=== PATIENT | male | born 1960 | race African-American/Black ===

== ENCOUNTER 2016-11-28 10:58 | Inpatient (IN) | payer MEDICAID ==
[2016-11-28 11:37] LABS: % BASOPHILS 2.1 % (0.0-2.0); % EOSINOPHILS 3.1 % (0.0-5.0); % LYMPHOCYTES 46.9 % (20.0-50.0); % MONOCYTES 6.9 % (2.0-10.0); HEMATOCRIT 44.2 % (39.0-49.0); HEMOGLOBIN 14.5 gm/dL (13.2-17.3); MEAN CELL VOLUME 91.5 fl (80-99); MEAN CORPUSCULAR HEMOGLOBIN 29.9 pg (26.0-30.0); MEAN CORPUSCULAR HGB CONC 32.7 pg (28.0-36.0); MEAN PLATELET VOLUME 7.4 fl; NEUTROPHILE ABSOLUTE 1.9 Th/cmm (1.8-8.0); PLATELET COUNT 250 Th/cmm (150-400); RED BLOOD COUNT 4.83 Mil/cmm (4.30-5.70); RED CELL DISTRIBUTION WIDTH 13.2 % (11.5-20.0); WHITE BLOOD COUNT 4.6 Th/cmm (4.8-10.8)
[2016-11-28 11:53] LABS: INR 1.06 (0.5-1.4)
[2016-11-28 11:55] LABS: ALB/GLOB RATIO 0.9 (1.0-1.8); ALKALINE PHOSPHATASE 80 U/L (34-104); ANION GAP 9.9 (7.0-16.0); BILIRUBIN,TOTAL 0.5 mg/dL (0.3-1.0); BUN - UREA NITROGEN 23 mg/dL (7-25); BUN/CREATININE RATIO 38.3; CALCIUM SERUM 9.9 mg/dL (8.6-10.3); CARBON DIOXIDE 25.2 mEq/L (21.0-31.0); CHLORIDE 103 mEq/L (98-107); CREATININE - SERUM 0.6 mg/dL (0.7-1.3); GLUCOSE 78 mg/dL (70-105); POTASSIUM SERUM 4.1 mEq/L (3.5-5.1); SGOT 28 U/L (13-39); SGPT/ALT 30 U/L (7-52); SODIUM SERUM 134 mEq/L (136-145)
[2016-11-28 11:56] LABS: CHOLESTEROL 170 mg/dL (<200); TRIGLYCERIDES 49 mg/dL (<150)
[2016-11-28] MEDS ORDERED: Sodium Chloride 0.9% 1,000 ML IV ONE (12:29)
--- NOTE | 2016-11-28 12:39 | ED Physician Chart ---
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 THE PATIENT [facility] S[facility] FROM [facility] BECAUSE HIS LEVEL NOURISHMENT HAS DECREASED GREATLY AND THAT HE NEEDS A G-TUBE PLACEMENT. HE HAS BEEN SHORT OF BREATH WITH SEVERE CHEST CONGESTION. Allergies:: Allergies Allergy/AdvReac Type Severity Reaction Status Date / Time No Known Allergies Allergy Verified 11/28/16 11:12 Vitals:: Vital Signs - 8 hr 11/28/16 11:13 Temp 97.7 F HR 66 RR 17 BP 127/81 O2 Sat % 98 Historian:: EMS, Medical Records Review:: Nurse's Note Reviewed, Old Chart Reviewed, Transfer documents Reviewed Review of Systems - Review of Systems General/Constitutional: No fever, No chills, Weight loss (THIS PATIENT IS UNABLE TO GIVE A REVIEW OF SYSTEMS.), No weakness, No diaphoresis, No edema, No loss of appetite Skin: No skin lesions, No rash, No bruising Head: No headache, No light-headedness Eyes: No loss of vision, No pain, No diplopia ENT: No earache, No nasal drainage, No sore throat, No tinnitus Neck: No neck pain, No swelling, No thyromegaly, No stiffness, No mass noted Cardio Vascular: No chest pain, No palpitations, No PND, No orthopnea, No edema Pulmonary: No SOB, No cough, No sputum, No wheezing GI: No nausea, No vomiting, No diarrhea, No pain, No melena, No hematochezia, No constipation, No hematemesis G/U: No dysuria, No frequency, No hematuria Musculoskeletal: No bone or joint pain, No back pain, No muscle pain Endocrine: No polyuria, No polydipsia Psychiatric: No prior psych history, No depression, No anxiety, No suicidal ideation Hematopoietic: No bruising, No lymphadenopathy Allergic/Immuno: No urticaria, No angioedema Neurological: No syncope, No focal symptoms, No weakness, No paresthesia, No headache, No seizure, No dizziness, No confusion, No vertigo Past Medical History - Past Medical History Obtainable: Yes Past Medical History: Asthma/COPD, DVT/PE, Dementia Family History: None Social History: Non Smoker, No Alcohol, No Drug Use, Single, Care Facility Surgical History: None Psychiatricy History: Dementia Medication: Reviewed Family Medical History - Family Member Father History Unknown: Yes Ethnicity: Non- Living Status: Unknown Physical Exam - Physical Examination General/Constitutional: Well-developed, well-nourished, Alert, No distress, GCS 15, Non-toxic appearing Other Gen/Cons comments:: THE PATIENT CANNOT SPEAK AND IS SPASTIC WITH SOME DIFFICULTY BREATHING AND WITH OCCASIONAL RHONCHI HEARD. Head: Atraumatic Eyes: Lids, conjuctiva normal, PERRL, EOMI Skin: Nl inspection, No rash, No skin lesions, No ecchymosis, Well hydrated, No lymphadenopathy ENMT: External ears, nose nl, Nasal exam nl, Lips, teeth, gums nl Neck: Nontender, Full ROM w/o pain, No JVD, No nuchal rigidity, No bruit, No mass, No stridor Respiratory: Nl effort/Exclusion Other Respiratory comments:: THERE ARE BILATERAL DECREASE BREAST SOUNDS WITH GENERALIZE RHONCHI Cardio Vascular: RRR, No murmur, gallop, rubs, NL S1 S2 GI: No tenderness/rebounding/guarding, No organomegaly, No hernia, Normal BS's, Nondistended, No mass/bruits, No McBurney tenderness : No CVA tenderness Extremities: No tenderness or effusion, Full ROM, normal strength in all extremities, No edema, Normal digits & nails Other Extremities comments:: BOTH FEET ARE DEFORMED AND SPASTIC. Neuro/Psych: Alert/oriented, Normal sensory exam, Mood normal, Normal gait, No focal deficits Other Neuro/Psych comments:: THE PATIENT CANNOT COMMUNICATE AND HAS BOTH A RESTING TREMOR AND A INTENTION TREMOR. Misc: normal gait, Normal back, No paraspinal tenderness Labs/Radiology/EKG Results - Lab Results Results: Laboratory Tests 11/28/16 11/28/16 11/28/16 11:20 11:20 11:20 WBC 4.6 L D RBC 4.83 Hgb 14.5 Hct 44.2 D MCV 91.5 MCH 29.9 MCHC Differential 32.7 RDW 13.2 Plt Count 250 MPV 7.4 Neutrophils % 41.0 Lymphocytes % 46.9 Monocytes % 6.9 Eosinophils % 3.1 Basophils % 2.1 H PT 11.0 INR 1.06 Sodium Potassium Chloride Carbon Dioxide Anion Gap BUN Creatinine Est GFR ( Amer) Est GFR (Non-Af Amer) BUN/Creatinine Ratio Glucose Calcium Total Bilirubin AST ALT Alkaline Phosphatase Troponin I Total Protein Albumin Globulin Albumin/Globulin Ratio Triglycerides 49 Cholesterol 170 LDL Cholesterol Direct 90 HDL Cholesterol 57 Amylase 11/28/16 11/28/16 11/28/16 11:20 11:20 11:20 WBC RBC Hgb Hct MCV MCH MCHC Differential RDW Plt Count MPV Neutrophils % Lymphocytes % Monocytes % Eosinophils % Basophils % PT INR Sodium 134 L Potassium 4.1 Chloride 103 Carbon Dioxide 25.2 Anion Gap 9.9 BUN 23 Creatinine 0.6 L Est GFR ( Amer) > 60.0 Est GFR (Non-Af Amer) > 60.0 BUN/Creatinine Ratio 38.3 Glucose 78 Calcium 9.9 Total Bilirubin 0.5 AST 28 ALT 30 Alkaline Phosphatase 80 Troponin I 0.01 Total Protein 8.4 H Albumin 3.9 L Globulin 4.5 Albumin/Globulin Ratio 0.9 L Triglycerides Cholesterol LDL Cholesterol Direct HDL Cholesterol Amylase 66 - EKG Interpretations EKG Time:: 11:39 Rate & Rhythm: RATE=74 [place]: RIGHT Intervals: NONE Assessment - Assessment General Assessment: PNEUMONIA ED Septic Shock - . Is Septic Shock (SBP<90, OR Lactate>4 mmol\L) present?: No - <6hrs of presentation: Vital Signs: Vital Signs - 8 hr 11/28/16 11:13 Temp 97.7 F HR 66 RR 17 BP 127/81 O2 Sat % 98 Reassessment (Disposition) - Reassessment Reassessment Condition:: Unchanged - Diagnosis Diagnosis:: PNEUMONIA
[2016-11-28] MEDS ORDERED: Albuterol/Ipratropium Neb 3 ML AERS HHN ONE ×2 (12:40→12:43)
--- NOTE | 2016-11-28 13:03 | Diagnostic Imaging Report ---
Portable chest x-ray History: Shortness of breath Allowing for portable technique the heart size is normal. Mild atherosclerotic calcination seen in the aorta. No focal pulmonary parenchymal processes. No hilar or mediastinal abnormalities. Impression: No acute abnormalities.
[2016-11-28 13:19] LABS: URINE BILIRUBIN SMALL (NEGATIVE); URINE COLOR YELLOW; URINE GLUCOSE (UA) NEGATIVE (NEGATIVE); URINE KETONE 40 mg/dL (NEGATIVE)
[2016-11-28 13:20] LABS: URINE BLOOD SMALL (NEGATIVE)
[2016-11-28 13:28] LABS: URINE PH 5.5
[2016-11-28 13:30] LABS: URINE PROTEIN 30 mg/dL (NEGATIVE); URINE UROBILINOGEN 0.2 E.U./dL (0.2 - 1.0)
[2016-11-28 13:34] LABS: URINE BACTERIA FEW /hpf (NONE SEEN); URINE EPITHELIAL CELLS OCCASIONAL /lpf (FEW)
[2016-11-28] MEDS ORDERED: Azithromycin 500 MG in Sodium Chloride 0.9% 250 ML IV ONE (13:37)
[2016-11-28] MEDS: D5-0.45NS 1,000 ML IV SCH (17:17)
--- NOTE | 2016-11-28 22:29 | Admit Criteria Form ---
Admit Criteria Forms - Admit Criteria Diagnosis: PNEUMONIA, COMMUNITY ACQUIRED Clinical Indications for Admission to Inpatient Care (Place ' X' for any and all applicable criteria): Admission to inpatient status for two midnights or more is indicated for ANY ONE of the following (1)(2)(3): [ ]I. Hypoxia [ ]II. Hemodynamic instability [ ]III. Altered mental status that is severe or persistent [ ]IV. Dehydration that is severe or persistent. [ ]V. Bacteremia [ ]. Moderate-risk or high-risk category patients (Pneumonia Severity Index ( PSI) class IV or V, or CURB-65 score of 3 or greater). [ ]VII. Intermediate-risk category patients (e.g., PSI class III or CURB-65 score 2) who do not improve with outpatient and observation care treatment [ ]VIII. Outpatient treatment failure as indicated by 1 or more of the following(9): [ ]a) Failure to respond to antibiotic (eg, resistant organism) [ ]b) Clinically significant adverse effects from medication (eg, vomiting) [ ]c) Complications of pneumonia (eg, empyema, bacteremia) [ ]d) Significant worsening of comorbid cond necessitating inpatient care (eg, chronic heart failure) [ X]IX. Appropriate diagnostic testing and treatment unavailable in outpatient or recovery facility (eg, testing or infection control measures unavailable) [ ]X. Respiratory finding (eg. tachypnea) that do not respond to outpatient observation care treatment [ ]XI. Complicated pleural effusions (eg, emphysema, exudative, loculated) [ ]XII. Immunocompromised patients (e.g., AIDS, chronic steroid use) at moderate or high risk based on clinical evaluation. Extended stay beyond goal length of stay may be needed for (20) [ ]a) Unclear diagnosis [ ]b) Pleural disease [ ]c) Severe pneumonia or treatment failure [ ]d) Respiratory failure [ ]e) New onset hyponatremia (serum Na concentration less than 135 mEq/L(mmol/ L) [ ]f) Clinically significant comorbid illness (eg, heart failure, atrial fibrillation with rapid heart rate, alcohol withdrawal, renal insufficiency)(34)(35) [ ]g) Comorbid acute exacerbation of COPD(36) [ ]h) Concomitant diagnosis of malignancy [ ]i) Concomitant altered mental status [ ]j) Culture-identified Gram-negative or antibiotic-resistant organism (eg, Pseudomonas, methicillin-resistant Staphylococcus aureus MRSA)(30) [ ]k) Healthcare-associated pneumonia (36) The original [facility] [employer] content created by [facility] has been revised. The portions of the content which have been revised are identified through the use of italic text or in bold, and [facility] has neither reviewed nor approved the modified material. All other unmodified content is copyright [facility]. Please see references footnoted in the original [facility] edition 2017 Admit Criteria Met?: Yes
--- NOTE | 2016-11-28 22:30 | Consultation ---
Consult Note - Consult Note Service Date: 11/28/16 Referring Physician: Mallory Traore Consult Note: PHYSICIAN Consultation Note: Date of Admission: 11/28/16 Purpose of Consultation: Chief Complaint:Patient TOMMY LANGFORD was admitted to location Medical[facility] Unit I with PNA, DEHYDRATION, FAILURE TO THRIVE. History of Present Illness: 56 y male with spastic paralysis brought from SNF for loss of appetite with chest congestion. Patient is unable to give any history. On initial evaluation, he was afebrile and his WBC Count was with in normal limits. Patient was thought to have pneumonia and started on rocephin and zithromax. ID consult was called for antibiotic management. 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 COPD, Asthma, Dementia Allergies Allergy/AdvReac Type Severity Reaction Status Date / Time No Known Allergies Allergy Verified 11/28/16 11:12 Vital Signs Temp 97.8 F 11/28/16 16:21 Pulse 72 11/28/16 16:21 Resp 18 11/28/16 16:21 BP 131/78 11/28/16 16:21 Pulse Ox 96 11/28/16 16:21 Intake & Output 11/28/16 11/28/16 11/29/16 06:59 18:59 06:59 Intake Total 1200 Output Total 700 Balance 500 Weight (lbs) 71.214 kg Intake: Intake, IV Amount 1200 Azithromycin 500 mg In 1200 Sodium Chloride 0.9% 250 ml @ 250 mls/hr IV X1 ONE Rx#:[id number] Oral 0 Output: Urine 700 Home Medication Medication Instructions Recorded Type Docusate Sodium [Dss] 100 mg PO BID 02/09/14 History Multimineral/Multivitamin 1 tab PO DAILY 02/09/14 History [Multivitamin & Multimineral] Rivaroxaban [Xarelto] 20 mg PO 1700 11/28/16 History Current Medications Generic Name Dose Route Start Last Admin Trade Name Freq PRN Reason Stop Dose Admin Docusate Sodium 100 mg 11/28/16 17:00 11/28/16 17:17 Colace PO 01/27/17 16:59 100 mg BID DONALD Administration Azithromycin 500 mg/ Sodium 250 mls @ 250 mls/hr 11/29/16 12:00 Chloride IV 01/28/17 11:59 Q24HR DONALD Dextrose/Sodium Chloride 1,000 mls @ 75 mls/hr 11/28/16 15:24 11/28/16 17:17 D5-0.45ns IV 01/27/17 15:23 75 mls/hr .[id number] DONALD Administration Ceftriaxone Sodium 1 gm/ 50 mls @ 100 mls/hr 11/29/16 13:00 Sodium Chloride IV 01/28/17 12:59 Q24HR DONALD Rivaroxaban 20 mg 11/28/16 17:00 11/28/16 17:17 Xarelto PO 01/27/17 16:59 20 mg 1700 DONALD Administration Review of Systems: A 12 point ROS was reviewed with the pertinent positive and negatives noted in the HPI. patient is unable to give any history. Social History Smoking Status Unknown if ever smoked Family Medical History Unknown. Yes Physical Exam: Vitals: as mentioned above. General: No Acute Distress HEENT: Eyes: No pallor, no icterus, EOMI Bilaterally, PERRLA Bilaterally. Head: normocephalic, atraumatic on inspection.Oral cavity moist, pink tongue. Cardio: +S1/S2 Auscultated, RRR, no murmurs/rubs/gallops noted Respiratory: Clear to Auscultate Bilaterally Abdominal: Soft, Nondistended, Nontender to palpation x 4 quadrants Genital/Urinary: deferred Extremities: No Edema noted in the lower extremities. Contractures of all 4 extremities. Neurological: Alert , unable to communicate, eyes open. Confused. Labs are reviewed. CXR shows no acute abnormalities. Assessment: 1. Failure to thrive. 2. ? aspiration. Congestion is better now. 3. COPD. 4. Dementia. 5. Spastic paralysis. Plan: Change antibiotics to levaquin, which can be changed to po for 10 days total. Thank you, Dr Atkinson for involving me in taking care of this patient. Signed, Franklin Alejo M.D. 11/28/005615
[2016-11-28] MEDS: Levofloxacin 500mg/100mL 500 MG/100 ML BAG IV SCH (23:13)
[2016-11-29 05:42] LABS: % BASOPHILS 0.7 % (0.0-2.0); % EOSINOPHILS 1.9 % (0.0-5.0); % LYMPHOCYTES 42.9 % (20.0-50.0); % MONOCYTES 7.9 % (2.0-10.0); % NEUTROPHILS 46.6 % (40.0-80.0); MEAN CELL VOLUME 91.2 fl (80-99); MEAN CORPUSCULAR HEMOGLOBIN 30.2 pg (26.0-30.0); MEAN CORPUSCULAR HGB CONC 33.1 pg (28.0-36.0); MEAN PLATELET VOLUME 7.6 fl; NEUTROPHILE ABSOLUTE 2.4 Th/cmm (1.8-8.0); PLATELET COUNT 234 Th/cmm (150-400); RED BLOOD COUNT 4.16 Mil/cmm (4.30-5.70); WHITE BLOOD COUNT 5.1 Th/cmm (4.8-10.8)
[2016-11-29 05:50] LABS: HEMOGLOBIN 12.5 gm/dL (13.2-17.3)
[2016-11-29 05:51] LABS: HEMATOCRIT 37.9 % (39.0-49.0)
[2016-11-29 06:04] LABS: ALB/GLOB RATIO 0.9 (1.0-1.8); ALKALINE PHOSPHATASE 65 U/L (34-104); ANION GAP 5.3 (7.0-16.0); BILIRUBIN,TOTAL 0.6 mg/dL (0.3-1.0); BUN - UREA NITROGEN 19 mg/dL (7-25); BUN/CREATININE RATIO 27.1; CARBON DIOXIDE 26.4 mEq/L (21.0-31.0); CHLORIDE 107 mEq/L (98-107); CREATININE - SERUM 0.7 mg/dL (0.7-1.3); GLUCOSE 114 mg/dL (70-105); POTASSIUM SERUM 3.7 mEq/L (3.5-5.1); SGOT 25 U/L (13-39); SGPT/ALT 25 U/L (7-52); SODIUM SERUM 135 mEq/L (136-145)
[2016-11-29] MEDS: Multivitamin w/ Minerals Tab PO SCH (08:42)
[2016-11-29] MEDS ORDERED: Azithromycin 500 MG in Sodium Chloride 0.9% 250 ML IV SCH (12:00)
[2016-11-29] MEDS ORDERED: cefTRIAXone 1 GM in 0.9% NS 50 ML IV SCH (13:00)
[2016-11-29] MEDS: Levofloxacin 500mg/100mL 500 MG/100 ML BAG IV SCH (23:22)
[2016-11-30] MEDS: D5-0.45NS 1,000 ML IV SCH (06:11)
[2016-11-30] MEDS: Multivitamin w/ Minerals Tab PO SCH (08:58)
--- NOTE | 2016-11-30 17:03 | General Progress Note ---
Subjective - Review of Systems Service Date: 11/30/16 Events since last encounter: no change Objective - Results Result Diagrams: 11/29/16 05:15 11/29/16 05:15 Recent Labs: Laboratory Last Values WBC 5.1 Th/cmm (4.8-10.8) 11/29/16 05:15 RBC 4.16 Mil/cmm (4.30-5.70) L 11/29/16 05:15 Hgb 12.5 gm/dL (13.2-17.3) L D 11/29/16 05:15 Hct 37.9 % (39.0-49.0) L D 11/29/16 05:15 MCV 91.2 fl (80-99) 11/29/16 05:15 MCH 30.2 pg (26.0-30.0) H 11/29/16 05:15 MCHC Differential 33.1 pg (28.0-36.0) 11/29/16 05:15 RDW 13.0 % (11.5-20.0) 11/29/16 05:15 Plt Count 234 Th/cmm (150-400) 11/29/16 05:15 MPV 7.6 fl 11/29/16 05:15 Neutrophils % 46.6 % (40.0-80.0) 11/29/16 05:15 Lymphocytes % 42.9 % (20.0-50.0) 11/29/16 05:15 Monocytes % 7.9 % (2.0-10.0) 11/29/16 05:15 Eosinophils % 1.9 % (0.0-5.0) 11/29/16 05:15 Basophils % 0.7 % (0.0-2.0) 11/29/16 05:15 ESR 57 mm/hr (0-20) H 11/29/16 05:15 PT 11.0 SECONDS (9.5-11.5) 11/28/16 11:20 INR 1.06 (0.5-1.4) 11/28/16 11:20 Sodium 135 mEq/L (136-145) L 11/29/16 05:15 Potassium 3.7 mEq/L (3.5-5.1) 11/29/16 05:15 Chloride 107 mEq/L (98-107) 11/29/16 05:15 Carbon Dioxide 26.4 mEq/L (21.0-31.0) 11/29/16 05:15 Anion Gap 5.3 (7.0-16.0) L 11/29/16 05:15 BUN 19 mg/dL (7-25) 11/29/16 05:15 Creatinine 0.7 mg/dL (0.7-1.3) 11/29/16 05:15 Est GFR ( Amer) > 60.0 ml/min (>90) 11/29/16 05:15 Est GFR (Non-Af Amer) > 60.0 ml/min 11/29/16 05:15 BUN/Creatinine Ratio 27.1 11/29/16 05:15 Glucose 114 mg/dL (70-105) H 11/29/16 05:15 Calcium 9.0 mg/dL (8.6-10.3) 11/29/16 05:15 Total Bilirubin 0.6 mg/dL (0.3-1.0) 11/29/16 05:15 AST 25 U/L (13-39) 11/29/16 05:15 ALT 25 U/L (7-52) 11/29/16 05:15 Alkaline Phosphatase 65 U/L (34-104) 11/29/16 05:15 Troponin I 0.01 ng/mL (0.01-0.05) 11/28/16 11:20 Total Protein 7.3 gm/dL (6.0-8.3) 11/29/16 05:15 Albumin 3.4 gm/dL (4.2-5.5) L 11/29/16 05:15 Globulin 3.9 gm/dL 11/29/16 05:15 Albumin/Globulin Ratio 0.9 (1.0-1.8) L 11/29/16 05:15 Triglycerides 49 mg/dL (<150) 11/28/16 11:20 Cholesterol 170 mg/dL (<200) 11/28/16 11:20 LDL Cholesterol Direct 90 mg/dL (75-193) 11/28/16 11:20 HDL Cholesterol 57 mg/dL (23-92) 11/28/16 11:20 Amylase 66 U/L (29-103) 11/28/16 11:20 TSH 0.20 uIU/ml (0.34-5.60) L 11/28/16 11:20 Urine Source CLEAN C 11/28/16 13:10 Urine Color YELLOW 11/28/16 13:10 Urine Clarity SLIGHTLY CLOUDY (CLEAR) 11/28/16 13:10 Urine pH 5.5 11/28/16 13:10 Ur Specific [place] 1.025 (1.005-1.030) 11/28/16 13:10 Urine Protein 30 mg/dL (NEGATIVE) H 11/28/16 13:10 Urine Glucose (UA) NEGATIVE mg/dL (NEGATIVE) 11/28/16 13:10 Urine Ketones 40 mg/dL (NEGATIVE) H 11/28/16 13:10 Urine Blood SMALL (NEGATIVE) H 11/28/16 13:10 Urine Nitrate NEGATIVE (NEGATIVE) 11/28/16 13:10 Urine Bilirubin SMALL (NEGATIVE) H 11/28/16 13:10 Urine Urobilinogen 0.2 E.U./dL (0.2 - 1.0) 11/28/16 13:10 Ur Leukocyte Esterase NEGATIVE (NEGATIVE) 11/28/16 13:10 Urine RBC 10-25 /hpf (0-5) H 11/28/16 13:10 Urine WBC 2-5 /hpf (0-5) H 11/28/16 13:10 Ur Epithelial Cells OCCASIONAL /lpf (FEW) 11/28/16 13:10 Urine Bacteria FEW /hpf (NONE SEEN) 11/28/16 13:10 Urine Mucus FEW /lpf (FEW) 11/28/16 13:10 - Physical Exam Vitals and I&O: Vital Signs Temp 97 F 11/30/16 13:00 Pulse 70 11/30/16 13:00 Resp 20 11/30/16 13:00 BP 105/66 11/30/16 13:00 Pulse Ox 97 11/30/16 13:00 Intake & Output 11/29/16 11/30/16 11/30/16 18:59 06:59 18:59 Intake Total 200 Balance 200 Weight (lbs) 71.214 kg 71.033 kg Intake: Oral 200 Other: # Voids 3 # Bowel Movements 1 Stool Characteristics Soft Soft Active Medications: Current Medications Docusate Sodium (Colace) 100 mg PO BID DONALD Stop: 01/27/17 16:59 Last Admin: 11/30/16 16:25 Dose: 100 mg Dextrose/Sodium Chloride (D5-0.45ns) 1,000 mls @ 75 mls/hr IV .[id number] [facility] Stop: 01/27/17 15:23 Last Admin: 11/30/16 06:11 Dose: 75 mls/hr Levofloxacin (Levaquin Pb) 500 mg in 100 mls @ 100 mls/hr IV Q24HR [facility] Stop: 01/27/17 22:59 Last Admin: 11/29/16 23:22 Dose: 100 mls/hr Rivaroxaban (Xarelto) 20 mg PO 1700 [facility] Stop: 01/27/17 16:59 Last Admin: 11/30/16 16:25 Dose: 20 mg General: No acute distress HEENT: Atraumatic Neck: Supple Assessment/Plan - Problem List Patient Problems: All Active Problems FAILURE TO THRIVE WITH POOR ORAL INTAKE (Acute) Fever (Acute) R50.9 Weakness (Acute) - Plan Plan: cpm Nutritional Asmnt/Malnutr-PDOC - Dietary Evaluation Malnutrition Findings (Please click <Entered> for more info): Nutritional Asmnt/Malnutrition Start: 11/29/16 11: 44 Text: Status: Complete Freq: Document 11/29/16 11:45 ANA (Rec: 11/29/16 12:11 ANA CHAMPION FN) Nutritional Asmnt/Malnutrition Patient General Information Nutritional Screening High Risk Screening Diagnosis PNA, deyhdration, Failure to thrive Pertinent Medical Hx/Surgical Hx Chronic embolism and thrombosis, dementia, parkinsons, huntingtons, psychosis, knee contracture, depression, dry eye syndrom, head injury, paralysis agitans , dyskinesia schizophrenia, goiter Subjective Information Patient was admitted from SNF after having "poor oral intake for several days and failure to thrive; possible swallowing compromise per caregiver". Patient just finished eating lunch at time of RD visit; per IMPLEMENTATION DIRECTOR, patient ate most of his food (all soup and milk) and tolerated well, (especially with the fluids, through a straw). Patient appears contracted and with milk temporal wasting. Unable to answer questions. Current Diet Order/ Nutrition Support Pureed Patient / S.O Not Indicated Pertinent Medications colace, D5-0.45 NS at 75ml/hr Pertinent Labs Albumin 3.4 Nutritional Hx/Data Height 1.8 m Height (Calculated Centimeters) 180.3 Current Weight (lbs) 71.214 kg Weight (Calculated Kilograms) 71.2 Weight (Calculated Grams) 08906.0 [place] Body Weight 172 % [place] Body Weight 91 Recent Weight Change No Weight Status Approriate GI Symptoms GI Symptoms None Difficult in: Chewing Swallowing Food Allergies No Cultural/Ethnic/[employer] Belief None indicated Usual diet at home Pureed Skin Integrity/Comment: Intact, bernardo 10 Estimated Nutritional Goals EEE in Kcals: 72 BEE in Kcals: Using Current wt Calories/Kcals/Kg 25-30 kcal/kg Kcals Calculated 7337-9345 kcal/day Protein: Using Current wt Protein g/k-1.2 gm/kg Protein Calculated 70-85 gm/day Fluid: ml 7425-4337 ml/day (1 ml/kcal) Nutritional Problem 1. Problem Problem inadequate oral intake related to Etiology possible poor appetite/ confusion/possible swallowing difficulty aeb Signs/Symptoms: poor oral intake for several days and failure to thrive per admission notes Malnutrition Alert Food and Nutrition Intake (Severe) <50% est energy req 5days Intervention/Recommendation Comments 1. Continue pureed diet as tolerated by patient; swallow evaluation as needed. 2. Continue full assistance with feedings and encourage oral intake; healthshake between meals to supplement calories/protein. Expected Outcomes/Goals Expected Outcomes/Goals Oral intake to meet 75-100% of estimated nutrient needs, weight remains stable.
--- NOTE | 2016-11-30 21:24 | Infectious Disease Prog Note ---
Infectious Disease Subjective - Review of Systems Service Date: 11/30/16 Events since last encounter: None. Subjective: No change. no fever, no shortness of breath. Infectious Disease Objective - Results Result Diagrams: 11/29/16 05:15 11/29/16 05:15 Recent Labs: Laboratory Last Values WBC 5.1 Th/cmm (4.8-10.8) 11/29/16 05:15 RBC 4.16 Mil/cmm (4.30-5.70) L 11/29/16 05:15 Hgb 12.5 gm/dL (13.2-17.3) L D 11/29/16 05:15 Hct 37.9 % (39.0-49.0) L D 11/29/16 05:15 MCV 91.2 fl (80-99) 11/29/16 05:15 MCH 30.2 pg (26.0-30.0) H 11/29/16 05:15 MCHC Differential 33.1 pg (28.0-36.0) 11/29/16 05:15 RDW 13.0 % (11.5-20.0) 11/29/16 05:15 Plt Count 234 Th/cmm (150-400) 11/29/16 05:15 MPV 7.6 fl 11/29/16 05:15 Neutrophils % 46.6 % (40.0-80.0) 11/29/16 05:15 Lymphocytes % 42.9 % (20.0-50.0) 11/29/16 05:15 Monocytes % 7.9 % (2.0-10.0) 11/29/16 05:15 Eosinophils % 1.9 % (0.0-5.0) 11/29/16 05:15 Basophils % 0.7 % (0.0-2.0) 11/29/16 05:15 ESR 57 mm/hr (0-20) H 11/29/16 05:15 PT 11.0 SECONDS (9.5-11.5) 11/28/16 11:20 INR 1.06 (0.5-1.4) 11/28/16 11:20 Sodium 135 mEq/L (136-145) L 11/29/16 05:15 Potassium 3.7 mEq/L (3.5-5.1) 11/29/16 05:15 Chloride 107 mEq/L (98-107) 11/29/16 05:15 Carbon Dioxide 26.4 mEq/L (21.0-31.0) 11/29/16 05:15 Anion Gap 5.3 (7.0-16.0) L 11/29/16 05:15 BUN 19 mg/dL (7-25) 11/29/16 05:15 Creatinine 0.7 mg/dL (0.7-1.3) 11/29/16 05:15 Est GFR ( Amer) > 60.0 ml/min (>90) 11/29/16 05:15 Est GFR (Non-Af Amer) > 60.0 ml/min 11/29/16 05:15 BUN/Creatinine Ratio 27.1 11/29/16 05:15 Glucose 114 mg/dL (70-105) H 11/29/16 05:15 Calcium 9.0 mg/dL (8.6-10.3) 11/29/16 05:15 Total Bilirubin 0.6 mg/dL (0.3-1.0) 11/29/16 05:15 AST 25 U/L (13-39) 11/29/16 05:15 ALT 25 U/L (7-52) 11/29/16 05:15 Alkaline Phosphatase 65 U/L (34-104) 11/29/16 05:15 Troponin I 0.01 ng/mL (0.01-0.05) 11/28/16 11:20 Total Protein 7.3 gm/dL (6.0-8.3) 11/29/16 05:15 Albumin 3.4 gm/dL (4.2-5.5) L 11/29/16 05:15 Globulin 3.9 gm/dL 11/29/16 05:15 Albumin/Globulin Ratio 0.9 (1.0-1.8) L 11/29/16 05:15 Triglycerides 49 mg/dL (<150) 11/28/16 11:20 Cholesterol 170 mg/dL (<200) 11/28/16 11:20 LDL Cholesterol Direct 90 mg/dL (75-193) 11/28/16 11:20 HDL Cholesterol 57 mg/dL (23-92) 11/28/16 11:20 Amylase 66 U/L (29-103) 11/28/16 11:20 TSH 0.20 uIU/ml (0.34-5.60) L 11/28/16 11:20 Urine Source CLEAN C 11/28/16 13:10 Urine Color YELLOW 11/28/16 13:10 Urine Clarity SLIGHTLY CLOUDY (CLEAR) 11/28/16 13:10 Urine pH 5.5 11/28/16 13:10 Ur Specific [place] 1.025 (1.005-1.030) 11/28/16 13:10 Urine Protein 30 mg/dL (NEGATIVE) H 11/28/16 13:10 Urine Glucose (UA) NEGATIVE mg/dL (NEGATIVE) 11/28/16 13:10 Urine Ketones 40 mg/dL (NEGATIVE) H 11/28/16 13:10 Urine Blood SMALL (NEGATIVE) H 11/28/16 13:10 Urine Nitrate NEGATIVE (NEGATIVE) 11/28/16 13:10 Urine Bilirubin SMALL (NEGATIVE) H 11/28/16 13:10 Urine Urobilinogen 0.2 E.U./dL (0.2 - 1.0) 11/28/16 13:10 Ur Leukocyte Esterase NEGATIVE (NEGATIVE) 11/28/16 13:10 Urine RBC 10-25 /hpf (0-5) H 11/28/16 13:10 Urine WBC 2-5 /hpf (0-5) H 11/28/16 13:10 Ur Epithelial Cells OCCASIONAL /lpf (FEW) 11/28/16 13:10 Urine Bacteria FEW /hpf (NONE SEEN) 11/28/16 13:10 Urine Mucus FEW /lpf (FEW) 11/28/16 13:10 - Physical Exam Vitals and I&O: Vital Signs Temp 98.3 F 11/30/16 17:00 Pulse 66 11/30/16 17:00 Resp 18 11/30/16 17:00 BP 95/58 11/30/16 17:00 Pulse Ox 97 11/30/16 17:00 Intake & Output 11/30/16 11/30/16 12/01/16 06:59 18:59 06:59 Intake Total 100 Balance 100 Weight (lbs) 71.033 kg 71.033 kg Intake: Oral 100 Other: # Voids 2 # Bowel Movements 1 Stool Characteristics Soft Active Medications: Current Medications Docusate Sodium (Colace) 100 mg PO BID [facility] Stop: 01/27/17 16:59 Last Admin: 11/30/16 16:25 Dose: 100 mg Dextrose/Sodium Chloride (D5-0.45ns) 1,000 mls @ 75 mls/hr IV .[id number] [facility] Stop: 01/27/17 15:23 Last Admin: 11/30/16 06:11 Dose: 75 mls/hr Levofloxacin (Levaquin Pb) 500 mg in 100 mls @ 100 mls/hr IV Q24HR [facility] Stop: 01/27/17 22:59 Last Admin: 11/29/16 23:22 Dose: 100 mls/hr Rivaroxaban (Xarelto) 20 mg PO 1700 [facility] Stop: 01/27/17 16:59 Last Admin: 11/30/16 16:25 Dose: 20 mg General: no acute distress, well developed, well nourished HEENT: atraumatic, normocephalic, PERRLA, EOMI, moist mucous membrane Neck: supple, no thyromegaly, no lymphadenopathy, no rigid, no lines Cardiovascular: S1S2, regular Lungs: clear to auscultation bilaterally, clear to percussion Abdomen: soft, no tender, no distended Extremities: no cyanosis, no clubbing, no edema Neurological: awake, alert, other (aphasic, contracted extremities.) Skin: intact Infectious Disease Assmt/Plan - Problem List Patient Problems: All Active Problems FAILURE TO THRIVE WITH POOR ORAL INTAKE (Acute) Fever (Acute) R50.9 Weakness (Acute) - Assessment Assessment: Assessment: 1. Failure to thrive. 2. ? aspiration. Congestion is better now. 3. COPD. 4. Dementia. 5. Spastic paralysis. Plan: Continue levaquin, which can be changed to po for 10 days total. Nutritional Asmnt/Malnutr-PDOC - Dietary Evaluation Malnutrition Findings (Please click <Entered> for more info): Nutritional Asmnt/Malnutrition Start: 11/29/16 11: 44 Text: Status: Complete Freq: Document 11/29/16 11:45 ANA (Rec: 11/29/16 12:11 ANA CHAMPION- FNS1) Nutritional Asmnt/Malnutrition Patient General Information Nutritional Screening High Risk Screening Diagnosis PNA, deyhdration, Failure to thrive Pertinent Medical Hx/Surgical Hx Chronic embolism and thrombosis, dementia, parkinsons, huntingtons, psychosis, knee contracture, depression, dry eye syndrom, head injury, paralysis agitans , dyskinesia schizophrenia, goiter Subjective Information Patient was admitted from SNF after having "poor oral intake for several days and failure to thrive; possible swallowing compromise per caregiver". Patient just finished eating lunch at time of RD visit; per HR REPRESENTATIVE, patient ate most of his food (all soup and milk) and tolerated well, (especially with the fluids, through a straw). Patient appears contracted and with milk temporal wasting. Unable to answer questions. Current Diet Order/ Nutrition Support Pureed Patient / S.O Not Indicated Pertinent Medications colace, D5-0.45 NS at 75ml/hr Pertinent Labs Albumin 3.4 Nutritional Hx/Data Height 1.8 m Height (Calculated Centimeters) 180.3 Current Weight (lbs) 71.214 kg Weight (Calculated Kilograms) 71.2 Weight (Calculated Grams) 96065.0 [place] Body Weight 172 % [place] Body Weight 91 Recent Weight Change No Weight Status Approriate GI Symptoms GI Symptoms None Difficult in: Chewing Swallowing Food Allergies No Cultural/Ethnic/Scientologist Belief None indicated Usual diet at home Pureed Skin Integrity/Comment: bernardo Baig 10 Estimated Nutritional Goals EEE in Kcals: 72 BEE in Kcals: Using Current wt Calories/Kcals/Kg 25-30 kcal/kg Kcals Calculated 2602-7949 kcal/day Protein: Using Current wt Protein g/k-1.2 gm/kg Protein Calculated 70-85 gm/day Fluid: ml 1537-1887 ml/day (1 ml/kcal) Nutritional Problem 1. Problem Problem inadequate oral intake related to Etiology possible poor appetite/ confusion/possible swallowing difficulty aeb Signs/Symptoms: poor oral intake for several days and failure to thrive per admission notes Malnutrition Alert Food and Nutrition Intake (Severe) <50% est energy req 5days Intervention/Recommendation Comments 1. Continue pureed diet as tolerated by patient; swallow evaluation as needed. 2. Continue full assistance with feedings and encourage oral intake; healthshake between meals to supplement calories/protein. Expected Outcomes/Goals Expected Outcomes/Goals Oral intake to meet 75-100% of estimated nutrient needs, weight remains stable.
[2016-11-30] MEDS: Levofloxacin 500mg/100mL 500 MG/100 ML BAG IV SCH (22:47)
[2016-12-01] MEDS: D5-0.45NS 1,000 ML IV SCH (00:08)
[2016-12-01] MEDS: Multivitamin w/ Minerals Tab PO SCH (08:44)
--- NOTE | 2016-12-01 12:52 | General Progress Note ---
Subjective - Review of Systems Events since last encounter: no distress Objective - Results Result Diagrams: 11/29/16 05:15 11/29/16 05:15 Recent Labs: Laboratory Last Values WBC 5.1 Th/cmm (4.8-10.8) 11/29/16 05:15 RBC 4.16 Mil/cmm (4.30-5.70) L 11/29/16 05:15 Hgb 12.5 gm/dL (13.2-17.3) L D 11/29/16 05:15 Hct 37.9 % (39.0-49.0) L D 11/29/16 05:15 MCV 91.2 fl (80-99) 11/29/16 05:15 MCH 30.2 pg (26.0-30.0) H 11/29/16 05:15 MCHC Differential 33.1 pg (28.0-36.0) 11/29/16 05:15 RDW 13.0 % (11.5-20.0) 11/29/16 05:15 Plt Count 234 Th/cmm (150-400) 11/29/16 05:15 MPV 7.6 fl 11/29/16 05:15 Neutrophils % 46.6 % (40.0-80.0) 11/29/16 05:15 Lymphocytes % 42.9 % (20.0-50.0) 11/29/16 05:15 Monocytes % 7.9 % (2.0-10.0) 11/29/16 05:15 Eosinophils % 1.9 % (0.0-5.0) 11/29/16 05:15 Basophils % 0.7 % (0.0-2.0) 11/29/16 05:15 ESR 57 mm/hr (0-20) H 11/29/16 05:15 PT 11.0 SECONDS (9.5-11.5) 11/28/16 11:20 INR 1.06 (0.5-1.4) 11/28/16 11:20 Sodium 135 mEq/L (136-145) L 11/29/16 05:15 Potassium 3.7 mEq/L (3.5-5.1) 11/29/16 05:15 Chloride 107 mEq/L (98-107) 11/29/16 05:15 Carbon Dioxide 26.4 mEq/L (21.0-31.0) 11/29/16 05:15 Anion Gap 5.3 (7.0-16.0) L 11/29/16 05:15 BUN 19 mg/dL (7-25) 11/29/16 05:15 Creatinine 0.7 mg/dL (0.7-1.3) 11/29/16 05:15 Est GFR ( Amer) > 60.0 ml/min (>90) 11/29/16 05:15 Est GFR (Non-Af Amer) > 60.0 ml/min 11/29/16 05:15 BUN/Creatinine Ratio 27.1 11/29/16 05:15 Glucose 114 mg/dL (70-105) H 11/29/16 05:15 Calcium 9.0 mg/dL (8.6-10.3) 11/29/16 05:15 Total Bilirubin 0.6 mg/dL (0.3-1.0) 11/29/16 05:15 AST 25 U/L (13-39) 11/29/16 05:15 ALT 25 U/L (7-52) 11/29/16 05:15 Alkaline Phosphatase 65 U/L (34-104) 11/29/16 05:15 Troponin I 0.01 ng/mL (0.01-0.05) 11/28/16 11:20 Total Protein 7.3 gm/dL (6.0-8.3) 11/29/16 05:15 Albumin 3.4 gm/dL (4.2-5.5) L 11/29/16 05:15 Globulin 3.9 gm/dL 11/29/16 05:15 Albumin/Globulin Ratio 0.9 (1.0-1.8) L 11/29/16 05:15 Triglycerides 49 mg/dL (<150) 11/28/16 11:20 Cholesterol 170 mg/dL (<200) 11/28/16 11:20 LDL Cholesterol Direct 90 mg/dL (75-193) 11/28/16 11:20 HDL Cholesterol 57 mg/dL (23-92) 11/28/16 11:20 Amylase 66 U/L (29-103) 11/28/16 11:20 TSH 0.20 uIU/ml (0.34-5.60) L 11/28/16 11:20 Urine Source CLEAN C 11/28/16 13:10 Urine Color YELLOW 11/28/16 13:10 Urine Clarity SLIGHTLY CLOUDY (CLEAR) 11/28/16 13:10 Urine pH 5.5 11/28/16 13:10 Ur Specific [place] 1.025 (1.005-1.030) 11/28/16 13:10 Urine Protein 30 mg/dL (NEGATIVE) H 11/28/16 13:10 Urine Glucose (UA) NEGATIVE mg/dL (NEGATIVE) 11/28/16 13:10 Urine Ketones 40 mg/dL (NEGATIVE) H 11/28/16 13:10 Urine Blood SMALL (NEGATIVE) H 11/28/16 13:10 Urine Nitrate NEGATIVE (NEGATIVE) 11/28/16 13:10 Urine Bilirubin SMALL (NEGATIVE) H 11/28/16 13:10 Urine Urobilinogen 0.2 E.U./dL (0.2 - 1.0) 11/28/16 13:10 Ur Leukocyte Esterase NEGATIVE (NEGATIVE) 11/28/16 13:10 Urine RBC 10-25 /hpf (0-5) H 11/28/16 13:10 Urine WBC 2-5 /hpf (0-5) H 11/28/16 13:10 Ur Epithelial Cells OCCASIONAL /lpf (FEW) 11/28/16 13:10 Urine Bacteria FEW /hpf (NONE SEEN) 11/28/16 13:10 Urine Mucus FEW /lpf (FEW) 11/28/16 13:10 - Physical Exam Vitals and I&O: Vital Signs Temp 97.9 F 12/01/16 11:57 Pulse 69 12/01/16 11:57 Resp 19 12/01/16 11:57 BP 118/85 12/01/16 11:57 Pulse Ox 98 12/01/16 11:57 Intake & Output 11/30/16 12/01/16 12/01/16 18:59 06:59 18:59 Intake Total 100 1100 Balance 100 1100 Weight (lbs) 71.033 kg Intake: Intake, IV Amount 1100 D5-0.45NS 1,000 ml @ 75 1000 mls/hr IV .[id number] [facility] Rx #:[id number] Levofloxacin 500mg/100mL 100 500 mg In 100 ml @ 100 mls/hr IV Q24HR [facility] Rx#: [id number] Oral 100 Other: # Voids 2 # Bowel Movements 1 Stool Characteristics Soft Active Medications: Current Medications Docusate Sodium (Colace) 100 mg PO BID [facility] Stop: 01/27/17 16:59 Last Admin: 12/01/16 08:44 Dose: 100 mg Dextrose/Sodium Chloride (D5-0.45ns) 1,000 mls @ 75 mls/hr IV .[id number] [facility] Stop: 01/27/17 15:23 Last Admin: 12/01/16 00:08 Dose: 75 mls/hr Levofloxacin (Levaquin Pb) 500 mg in 100 mls @ 100 mls/hr IV Q24HR [facility] Stop: 01/27/17 22:59 Last Infusion: 11/30/16 23:47 Dose: Infused Rivaroxaban (Xarelto) 20 mg PO 1700 [facility] Stop: 01/27/17 16:59 Last Admin: 11/30/16 16:25 Dose: 20 mg General: No acute distress HEENT: Atraumatic Assessment/Plan - Problem List Patient Problems: All Active Problems FAILURE TO THRIVE WITH POOR ORAL INTAKE (Acute) Fever (Acute) R50.9 Weakness (Acute) - Plan Plan: cpm Nutritional Asmnt/Malnutr-PDOC - Dietary Evaluation Malnutrition Findings (Please click <Entered> for more info): Nutritional Asmnt/Malnutrition Start: 11/29/16 11: 44 Text: Status: Complete Freq: Document 11/29/16 11:45 ANA (Rec: 11/29/16 12:11 ANA CHAMPION- FNS1) Nutritional Asmnt/Malnutrition Patient General Information Nutritional Screening High Risk Screening Diagnosis PNA, deyhdration, Failure to thrive Pertinent Medical Hx/Surgical Hx Chronic embolism and thrombosis, dementia, parkinsons, huntingtons, psychosis, knee contracture, depression, dry eye syndrom, head injury, paralysis agitans , dyskinesia schizophrenia, goiter Subjective Information Patient was admitted from SNF after having "poor oral intake for several days and failure to thrive; possible swallowing compromise per caregiver". Patient just finished eating lunch at time of RD visit; per WALKING DRAGLINE OILER, patient ate most of his food (all soup and milk) and tolerated well, (especially with the fluids, through a straw). Patient appears contracted and with milk temporal wasting. Unable to answer questions. Current Diet Order/ Nutrition Support Pureed Patient / S.O Not Indicated Pertinent Medications colace, D5-0.45 NS at 75ml/hr Pertinent Labs Albumin 3.4 Nutritional Hx/Data Height 1.8 m Height (Calculated Centimeters) 180.3 Current Weight (lbs) 71.214 kg Weight (Calculated Kilograms) 71.2 Weight (Calculated Grams) 59003.0 [place] Body Weight 172 % [place] Body Weight 91 Recent Weight Change No Weight Status Approriate GI Symptoms GI Symptoms None Difficult in: Chewing Swallowing Food Allergies No Cultural/Ethnic/Yazidism Belief None indicated Usual diet at home Pureed Skin Integrity/Comment: bernardo Baig 10 Estimated Nutritional Goals EEE in Kcals: 72 BEE in Kcals: Using Current wt Calories/Kcals/Kg 25-30 kcal/kg Kcals Calculated 0271-1196 kcal/day Protein: Using Current wt Protein g/k-1.2 gm/kg Protein Calculated 70-85 gm/day Fluid: ml 2812-0677 ml/day (1 ml/kcal) Nutritional Problem 1. Problem Problem inadequate oral intake related to Etiology possible poor appetite/ confusion/possible swallowing difficulty aeb Signs/Symptoms: poor oral intake for several days and failure to thrive per admission notes Malnutrition Alert Food and Nutrition Intake (Severe) <50% est energy req 5days Intervention/Recommendation Comments 1. Continue pureed diet as tolerated by patient; swallow evaluation as needed. 2. Continue full assistance with feedings and encourage oral intake; healthshake between meals to supplement calories/protein. Expected Outcomes/Goals Expected Outcomes/Goals Oral intake to meet 75-100% of estimated nutrient needs, weight remains stable.
[2016-12-01] MEDS: Levofloxacin 500mg/100mL 500 MG/100 ML BAG IV SCH (17:16)
[2016-12-02 03:09] LABS: AFP TUMOR MARKER 5.3 ng/mL (0.0-8.3); CARCINOEMBRYONIC ANTIGEN 2.7 ng/mL (0.0-4.7)
[2016-12-04 12:43] LABS: PROSTATE SPECIFIC ANTIGEN 1.4; THYROGLOBULIN AB <1.0
== END 2016-12-01 19:20 | disposition home or self-care (01) | DRG 139 ==
LOC: ER 10:58 → MSI 14:00
PROVIDERS: ADMIT Internal Medicine; ATTEND Internal Medicine
DX: J18.9 Pneumonia, unspecified organism (principal); F03.90 Unspecified dementia, unspecified severity, without behavioral disturbance, psychotic disturbance, mood disturbance, and anxiety; G83.9 Paralytic syndrome, unspecified; J44.9 Chronic obstructive pulmonary disease, unspecified; R62.7 Adult failure to thrive; E86.0 Dehydration; Z86.73 Personal history of transient ischemic attack (TIA), and cerebral infarction without residual deficits; Z86.718 Personal history of other venous thrombosis and embolism; Z86.711 Personal history of pulmonary embolism
CPT/HCPCS: 36415-UA; 71010-TC; 80053-TC; 80061-TC; 81001-TC; 82105-90; 82150-TC; 82378-90; 84153-90; 84432-90; 84443-TC; 84484-TC; 85025-TC; 85610-TC; 85652-TC; 86235-90; 86592-TC; 93005; 94640; 96375; J0456; J0696; J1956; J7040; Z7610

== ENCOUNTER 2017-03-01 12:16 | Inpatient (IN) | payer MEDICAID ==
--- NOTE | 2017-03-01 12:48 | ED Physician Chart ---
ED Chief Complaint/HPI - Patient Information Date Seen:: 03/01/17 Time Seen:: 12:29 Chief Complaint:: L hand wound noticed today. History of Present Illness:: Brought in by ambulance from nursing facility because of a wound noticed in the palm of left hand today. Pt appears to be comfortable without distress. Pt has dementia and is essentially nonverbal. H & P are limited because of pt's inability to cooperate. Info is primarily from review of limited transfer documents. Allergies:: Allergies Allergy/AdvReac Type Severity Reaction Status Date / Time No Known Allergies Allergy Verified 03/01/17 12:25 Vitals:: Vital Signs - 8 hr 03/01/17 12:16 Temp 97.6 F HR 79 RR 16 BP 136/76 O2 Sat % 98 Historian:: Medical Records (from transferring facility.) Family MD/PCP:: Dr. Traore LMP:: N/A Review:: Nurse's Note Reviewed, Transfer documents Reviewed ED Review of Systems - Review of Systems General/Constitutional: Other (Pt is unable to cooperate for ROS.) ED Past Medical History - Past Medical History Past Medical History: DVT/PE, Dementia, Other (Parkinson's disease, Tate' s disease) Family History: Other (Pt is unable to cooperate to provide info on FHx.) Social History: Care Facility, Other (Pt is unable to cooperate to provide info on SHx.) Surgical History: other (Pt is unable to cooperate to provide info on Surgical Hx.) Psychiatricy History: Depression, Dementia Medication: Reviewed Family Medical History - Family Member Father History Unknown: Yes Ethnicity: Non- Living Status: Unknown ED Physical Exam - Physical Examination General/Constitutional: Awake, Well-developed, well-nourished, Alert, No distress, Non-toxic appearing Other Gen/Cons comments:: Pt is alert but is essentially nonverbal. Breathes comfortably, responds to voice and tactile stimuli. Head: Atraumatic Eyes: Lids, conjuctiva normal, PERRL, EOMI Skin: Well hydrated, No lymphadenopathy Other Skin comments:: See also Extremities exam. ENMT: External ears, nose nl, Nasal exam nl, Oropharynx nl Neck: Nontender, Full ROM w/o pain, No JVD, No nuchal rigidity, No mass, No stridor Respiratory: Nl effort/Exclusion, Clear to Auscultation, No Wheeze/Rhonchi/Rales Cardio Vascular: RRR, No murmur, gallop, rubs GI: No tenderness/rebounding/guarding, No organomegaly, Normal BS's, Nondistended Other GI comments:: Abdomen is soft. Other Extremities comments:: Contractures noticed in all 4 extremities. R ankle shows chronic changes with deformity. Nontender. No open wound, erythema, or swelling. L hand has marked contracture. There is an approx 1 x 1.5 cm area of skin maceration with light yellow exudate noticed. There is minimal swelling and erythema. No crepitus or red streaking. No detectable motor/sensory/vascular deficit. Good distal capillary refills. Other Neuro/Psych comments:: Alert, responsive to voice and tactile stimuli. Spontaneous movements noticed in all 4 extremities. Pt does not cooperate for full neurological exam. ED Labs/Radiology/EKG Results - Lab Results Results: Laboratory Tests 03/01/17 03/01/17 03/01/17 12:58 12:58 12:58 WBC 4.3 L RBC 4.40 Hgb 13.4 Hct 40.2 L MCV 91.3 MCH 30.5 H MCHC Differential 33.4 RDW 12.5 Plt Count 266 MPV 6.7 Neutrophils % 34.6 L Lymphocytes % 52.1 H Monocytes % 8.9 Eosinophils % 3.9 Basophils % 0.5 PT 11.0 INR 1.06 PTT (Actin FS) 33.2 Sodium 135 L Potassium 4.0 Chloride 104 Carbon Dioxide 28.3 Anion Gap 6.7 L BUN 16 Creatinine 0.6 L Est GFR ( Amer) > 60.0 Est GFR (Non-Af Amer) > 60.0 BUN/Creatinine Ratio 26.7 Glucose 90 Calcium 9.1 Total Bilirubin 0.3 AST 17 ALT 15 Alkaline Phosphatase 63 Total Protein 7.3 Albumin 3.5 L Globulin 3.8 Albumin/Globulin Ratio 0.9 L ED Septic Shock - . Is Septic Shock (SBP<90, OR Lactate>4 mmol\L) present?: No - <6hrs of presentation: Vital Signs: Vital Signs - 8 hr 03/01/17 12:16 Temp 97.6 F HR 79 RR 16 BP 136/76 O2 Sat % 98 ED Reassessment (Disposition) - Reassessment Reassessment:: 1415 Pt remains stable. Lab results just became available. Case was discussed with Dr. Traore with pertinent H & P, and lab findings reviewed. He decided to admit pt to Med/Surg [facility] under his care. - Diagnosis Diagnosis:: L hand wound infection. Stable. 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 Dementia - Patient Disposition Admitted to:: Med/Surg Admitting Medical Physician:: Mallory Traore Time:: 14:20 Condition at Disposition:: Stable
[2017-03-01] MEDS ORDERED: Sulfamethoxazole/TMP 800/160mg Tab PO ONE (13:05)
[2017-03-01] MEDS ORDERED: Triple Antibiotic 0.94 gm Pkt TP STA (13:05)
[2017-03-01 13:06] LABS: % BASOPHILS 0.5 % (0.0-2.0); % EOSINOPHILS 3.9 % (0.0-5.0); % LYMPHOCYTES 52.1 % (20.0-50.0); % MONOCYTES 8.9 % (2.0-10.0); % NEUTROPHILS 34.6 % (40.0-80.0); HEMATOCRIT 40.2 % (41.0-60); HEMOGLOBIN 13.4 gm/dL (12-16); MEAN CELL VOLUME 91.3 fl (80-99); MEAN CORPUSCULAR HEMOGLOBIN 30.5 pg (26.0-30.0); MEAN CORPUSCULAR HGB CONC 33.4 pg (28.0-36.0); MEAN PLATELET VOLUME 6.7 fl; NEUTROPHILE ABSOLUTE 1.5 Th/cmm (1.8-8.0); PLATELET COUNT 266 Th/cmm (150-400); RED CELL DISTRIBUTION WIDTH 12.5 % (11.5-20.0); WHITE BLOOD COUNT 4.3 Th/cmm (4.8-10.8)
[2017-03-01] MEDS ORDERED: Levofloxacin 500mg/100mL 500 MG/100 ML BAG IV ONE ×2 (13:06→13:33)
[2017-03-01] MEDS ORDERED: Triple Antibiotic 0.94 gm Pkt TP ONE (13:07)
[2017-03-01 13:16] LABS: INR 1.06 (0.5-1.4)
[2017-03-01 13:17] LABS: ALB/GLOB RATIO 0.9 (1.0-1.8); ALKALINE PHOSPHATASE 63 U/L (34-104); ANION GAP 6.7 (7.0-16.0); BILIRUBIN,TOTAL 0.3 mg/dL (0.3-1.0); BUN - UREA NITROGEN 16 mg/dL (7-25); BUN/CREATININE RATIO 26.7; CALCIUM SERUM 9.1 mg/dL (8.6-10.3); CARBON DIOXIDE 28.3 mEq/L (21.0-31.0); CHLORIDE 104 mEq/L (98-107); CREATININE - SERUM 0.6 mg/dL (0.7-1.3); GLUCOSE 90 mg/dL (70-105); SGOT 17 U/L (13-39); SGPT/ALT 15 U/L (7-52); SODIUM SERUM 135 mEq/L (136-145)
[2017-03-01] MEDS ORDERED: Sulfamethoxazole/TMP 800/160mg Tab ONE (13:32)
[2017-03-01] MEDS: D5-0.45NS 1,000 ML IV SCH (17:26)
--- NOTE | 2017-03-01 20:45 | History & Physical ---
ADMIT DATE: 03/01/2017 HISTORY OF PRESENT ILLNESS: This patient is known to me from the [facility], apparently had infected palm of the left hand. It looks like he had some pus as well as an abscess formation and the nails were digging in. The patient came to the Emergency Room, was evaluated, and admitted for abscess of palm, rule out mustafa abscess, sepsis, and history of dementia. PAST MEDICAL HISTORY: Included history of dementia, history of DVT in the past, history of Parkinson disease, Madeleine disease. Difficult to obtain any other history. PAST MEDICAL HISTORY: As enumerated above. PHYSICAL EXAMINATION: GENERAL: The patient is awake, alert, well-developed, well-nourished, who is not in acute distress, seems to be noncommunicative. HEENT: Head is atraumatic. Eyes are normal. SKIN: Normal. NECK: Supple and nontender. LUNGS: Clear. CARDIOVASCULAR SYSTEM: S1, S2 heard. EXTREMITIES: Left hand, he has lesion and abscess formation, and nails are digging into the and he has contracture, left hand contracture. He has approximately 1 inch x 1.5 cm skin laceration as well as an exudate, possible abscess, and his distal capillary refills are okay. LABORATORY DATA: The patient's white count was 4.3, actually on lower side, hemoglobin 13.4, hematocrit was 40. Electrolytes were normal. PHYSICAL EXAMINATION: VITAL SIGNS: Stable. Blood pressure 136/76, pulse was 76, and respiration was normal. 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 PLAN: The patient is being admitted and I will go ahead and call Dr. Mccormick and Dr. Franklin Alejo and I will start him on antibiotics and possible debridement. JOB# [id number]
[2017-03-02] MEDS: D5-0.45NS 1,000 ML IV SCH (04:39)
--- NOTE | 2017-03-02 08:43 | Diagnostic Imaging Report ---
Portable chest x-ray History: Shortness of breath, preoperative Allowing for portable technique the heart size is normal. No focal pulmonary parenchymal processes. No hilar or mediastinal abnormalities. Impression: No acute abnormalities.
--- NOTE | 2017-03-02 09:21 | Consultation ---
DATE OF CONSULTATION: 03/02/2017 SURGICAL CONSULTATION REFERRING PHYSICIAN: Dr. Traore. REASON FOR CONSULTATION: Abscess, left arm. Thank you for referring this patient to me. HISTORY OF PRESENT ILLNESS: This is a 56-year-old male who comes in through the Emergency Room because of what was discovered in the long-term to be an abscess in the left palm of the hand. The patient is severely contracted, noncommunicative. He responds to stimuli with a very agitated manner. He comes into the Emergency Room, was admitted because of this condition, and has no family. Two doctors signed the consent for the incision and drainage and this will be done under sedation and local anesthesia. LABORATORY STUDIES: Today, WBC is normal, hemoglobin is 13.4. Chemistry is essentially normal. Chest x-ray shows no acute abnormality. PHYSICAL EXAMINATION: The patient with severely contracted. The fingers are held tight against the palm of the hand and trying to this open provokes severe agitation in the patient. There, however, appears to be an abscess with surrounding cellulitis. RECOMMENDATION: I would recommend an incision and drainage of the abscess. The patient already on antibiotics now. Awaiting cultures. We will continue the same antibiotics. JOB# [id number]
--- NOTE | 2017-03-02 09:40 | Operative Report ---
DATE OF SURGERY: 03/02/2017 PREOPERATIVE DIAGNOSES: 1. Abscess, left hand. 2. Parkinson's disease. 3. [place]'s chorea. 4. Dementia . 5. Severe contractures. SURGEON: Anny Hamilton M.D. ANESTHESIA: MAC. ANESTHESIOLOGIST: Angie Maloney M.D. ESTIMATED BLOOD LOSS: None. INDICATIONS FOR SURGERY: Left palm abscess discovered from the shelter. The patient has no family and 2 doctors signed consent for medical necessity. OPERATION DONE: Incision and drainage of abscess, left palm. DESCRIPTION OF PROCEDURE: The patient was given IV sedation. The left hand was prepped with Betadine and draped. Lidocaine 1% was used to infiltrate around the area of abscess. An incision was made through the abscess and the hemostat was introduced. Cultures were taken. The wound was packed with iodoform gauze. The nails were trimmed. It appears that he has been digging into the palm with his nails. JOB# [id number]
--- NOTE | 2017-03-02 10:03 | Consultation ---
Consult Note - Consult Note Service Date: 03/02/17 Referring Physician: Mallory Traore Consult Note: PHYSICIAN Consultation Note: Date of Admission: 03/01/17 Purpose of Consultation: LT HAND ABSCESS Chief Complaint: Patient TOMMY LANGFORD was admitted to [facility] Unit I with R/O SEPSIS. History of Present Illness: 56-year-old male with a past medical history CVA, spastic paralysis with the flexion contractures, COPD, asthma, dementia [facility] hand swelling and posture on plantar aspect. On initial evaluation, his temperature 97.6 today Fahrenheit and WBC count was 4300. He was diagnosed to have left leg cellulitis and abscess. I&D was performed by Dr. Mccormick this morning. Infectious disease consultation was for antibiotic management. Patient was put on vancomycin and Zosyn yesterday. 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 COPD, Asthma, Dementia. Diagnoses UNSPECIFIED DEMENTIA WITHOUT BEHAVIORAL DISTURBANCE (03/01/17) CITLALI'S DISEASE (03/01/17) PARKINSON'S DISEASE (03/01/17) CUTANEOUS ABSCESS OF LEFT HAND (03/01/17) PERSONAL HISTORY OF OTHER VENOUS THROMBOSIS AND EMBOLISM (03/01/17) Allergies Allergy/AdvReac Type Severity Reaction Status Date / Time No Known Allergies Allergy Verified 03/01/17 12:25 Vital Signs Temp 97.3 F 03/02/17 04:00 Pulse 83 03/02/17 04:00 Resp 18 03/02/17 04:00 BP 135/66 03/02/17 04:00 Pulse Ox 92 03/02/17 04:00 Intake & Output 03/01/17 03/02/17 03/02/17 18:59 06:59 18:59 Intake Total 100 941.25 Balance 100 941.25 Weight (lbs) 70.76 kg 70.76 kg Intake: Intake, IV Amount 100 941.25 D5-0.45NS 1,000 ml @ 75 841.25 mls/hr IV .[id number] [facility] Rx #:[id number] Levofloxacin 500mg/100mL 100 500 mg In 100 ml @ 100 mls/hr IV X1 ONE Rx#: [id number] Piperacillin Sodium/ 100 Tazobact 4.5 gm In Sodium Chloride 0.9% 100 ml @ 100 mls/hr IV Q8HR [facility] Rx #:[id number] Other: # Voids 4 Laboratory Results - last 24 hr 03/01/17 17:02 POC Glucose 74 Home Medication Medication Instructions Recorded Type Multivitamin w/ Minerals 1 tab PO DAILY tab 12/01/16 Rx [Theragran M] Rivaroxaban [Xarelto] 20 mg PO 1700 tab 12/01/16 Rx Sennosides A and B [Senna] 8.6 mg PO BID 03/01/17 History Current Medications Generic Name Dose Route Start Last Admin Trade Name Freq PRN Reason Stop Dose Admin Dextrose/Sodium Chloride 1,000 mls @ 75 mls/hr 03/01/17 16:10 03/02/17 04:39 D5-0.45ns IV 04/30/17 16:09 75 mls/hr .[id number] [facility] Administration Vancomycin HCl 1 gm/ Sodium 250 mls @ 165 mls/hr 03/01/17 16:10 03/01/17 17: 21 Chloride IV 04/30/17 16:09 165 mls/hr Q24H [facility] Administration Piperacillin Sod/Tazobactam 100 mls @ 100 mls/hr 03/01/17 21:00 03/02/17 04: 49 Sod 4.5 gm/ Sodium Chloride IV 04/30/17 20:59 100 mls/hr Q8HR [facility] Administration Rivaroxaban 20 mg 03/01/17 17:00 03/01/17 18:10 Xarelto PO 04/30/17 16:59 20 mg QPM [facility] Administration Senna 8.6 mg 03/01/17 17:00 03/01/17 18:11 Senna PO 04/30/17 16:59 8.6 mg BID [facility] Administration Review of Systems: A 12 point ROS was reviewed with the pertinent positive and negatives noted in the HPI. Social History Smoking Status Unknown if ever smoked Drug Use No Alcohol Use No Family Medical History Unknown. Physical Exam: Vitals: as mentioned above. General: No Acute Distress HEENT: Eyes: No pallor, no icterus, EOMI Bilaterally, PERRLA Bilaterally. Head: normocephalic, atraumatic on inspection.Oral cavity moist, pink tongue. Cardio: +S1/S2 Auscultated, RRR, no murmurs/rubs/gallops noted Respiratory: Clear to Auscultate Bilaterally Abdominal: Soft, Nondistended, Nontender to palpation x 4 quadrants Genital/Urinary: deferred Extremities: No Edema noted in the lower extremities. Contractures of all 4 extremities. Left hand swelling with surgical dressing. Neurological: Alert , unable to communicate, eyes open. Confused. Assessment: 1. Left hand cellulitis and abscess. 2. S/p I and D. 3. CVA. 4. COPD. Plan: Continue vancomycin IV and zosyn IV. Wound care. Thank you, Dr. Traore, for involving me in taking care of this patient Signed, Franklin Alejo M.D. [id number]
[2017-03-02] MEDS: Multivitamin w/ Minerals Tab PO SCH (10:11)
[2017-03-02] MEDS ORDERED: HYDROmorphone 2 mg/mL 1mL Vial IVP PRN (10:40)
[2017-03-02] MEDS ORDERED: VTE Chemical Prophylaxis Screen/Admission MC PRN (12:14)
[2017-03-02] MEDS ORDERED: Probiotic Screen MC PRN (14:40)
[2017-03-02] MEDS: Lactobacillus Rhamnosus 10 Billion CFU Capsule PO SCH (16:26)
--- NOTE | 2017-03-02 19:52 | Internal Medicine Prog Note ---
Internal Medicine Subjective - Subjective Service Date: 03/02/17 Patient seen and examined:: with staff Patient is:: awake, non-verbal, non-interactive Per staff patient has:: no adverse event Internal Medicine Objective - Results Result Diagrams: 03/01/17 12:58 03/01/17 12:58 Recent Labs: Laboratory Last Values WBC 4.3 Th/cmm (4.8-10.8) L 03/01/17 12:58 RBC 4.40 Mil/cmm (4.30-5.70) 03/01/17 12:58 Hgb 13.4 gm/dL (12-16) 03/01/17 12:58 Hct 40.2 % (41.0-60) L 03/01/17 12:58 MCV 91.3 fl (80-99) 03/01/17 12:58 MCH 30.5 pg (26.0-30.0) H 03/01/17 12:58 MCHC Differential 33.4 pg (28.0-36.0) 03/01/17 12:58 RDW 12.5 % (11.5-20.0) 03/01/17 12:58 Plt Count 266 Th/cmm (150-400) 03/01/17 12:58 MPV 6.7 fl 03/01/17 12:58 Neutrophils % 34.6 % (40.0-80.0) L 03/01/17 12:58 Lymphocytes % 52.1 % (20.0-50.0) H 03/01/17 12:58 Monocytes % 8.9 % (2.0-10.0) 03/01/17 12:58 Eosinophils % 3.9 % (0.0-5.0) 03/01/17 12:58 Basophils % 0.5 % (0.0-2.0) 03/01/17 12:58 PT 11.0 SECONDS (9.5-11.5) 03/01/17 12:58 INR 1.06 (0.5-1.4) 03/01/17 12:58 PTT (Actin FS) 33.2 SECONDS (26.0-38.0) 03/01/17 12:58 Sodium 135 mEq/L (136-145) L 03/01/17 12:58 Potassium 4.0 mEq/L (3.5-5.1) 03/01/17 12:58 Chloride 104 mEq/L (98-107) 03/01/17 12:58 Carbon Dioxide 28.3 mEq/L (21.0-31.0) 03/01/17 12:58 Anion Gap 6.7 (7.0-16.0) L 03/01/17 12:58 BUN 16 mg/dL (7-25) 03/01/17 12:58 Creatinine 0.6 mg/dL (0.7-1.3) L 03/01/17 12:58 Est GFR ( Amer) > 60.0 ml/min (>90) 03/01/17 12:58 Est GFR (Non-Af Amer) > 60.0 ml/min 03/01/17 12:58 BUN/Creatinine Ratio 26.7 03/01/17 12:58 Glucose 90 mg/dL (70-105) 03/01/17 12:58 POC Glucose 74 MG/DL (70 - 105) 03/01/17 17:02 Calcium 9.1 mg/dL (8.6-10.3) 03/01/17 12:58 Total Bilirubin 0.3 mg/dL (0.3-1.0) 03/01/17 12:58 AST 17 U/L (13-39) 03/01/17 12:58 ALT 15 U/L (7-52) 03/01/17 12:58 Alkaline Phosphatase 63 U/L (34-104) 03/01/17 12:58 Total Protein 7.3 gm/dL (6.0-8.3) 03/01/17 12:58 Albumin 3.5 gm/dL (4.2-5.5) L 03/01/17 12:58 Globulin 3.8 gm/dL 03/01/17 12:58 Albumin/Globulin Ratio 0.9 (1.0-1.8) L 03/01/17 12:58 - Physical Exam Vitals and I&O: Vital Signs Temp 97.5 F 03/02/17 16:00 Pulse 70 03/02/17 16:00 Resp 16 03/02/17 16:00 BP 114/63 03/02/17 16:00 Pulse Ox 94 03/02/17 16:00 Intake & Output 03/02/17 03/02/17 03/03/17 06:59 18:59 06:59 Intake Total 1041.25 703.75 Balance 1041.25 703.75 Weight (lbs) 156 lb Intake: Intake, IV Amount 1041.25 703.75 D5-0.45NS 1,000 ml @ 75 841.25 703.75 mls/hr IV .[id number] [facility] Rx #:[id number] Piperacillin Sodium/ 200 Tazobact 4.5 gm In Sodium Chloride 0.9% 100 ml @ 100 mls/hr IV Q8HR [facility] Rx #:[id number] Other: # Voids 4 Active Medications: Current Medications Heparin Sodium (Porcine) (Heparin) 5,000 units SUBQ Q12HR [facility] Stop: 05/02/17 20:59 Hydromorphone HCl (Dilaudid) 2 mg IVP Q4H PRN PRN Reason: Pain (Severe) Stop: 05/01/17 10:39 Last Admin: 03/02/17 10:57 Dose: 2 mg Dextrose/Sodium Chloride (D5-0.45ns) 1,000 mls @ 75 mls/hr IV .[id number] [facility] Stop: 04/30/17 16:09 Last Infusion: 03/02/17 14:02 Dose: 75 mls/hr Vancomycin HCl 1 gm/ Sodium (Chloride) 250 mls @ 165 mls/hr IV Q24H [facility] Stop: 04/30/17 16:09 Last Admin: 03/02/17 16:26 Dose: 165 mls/hr Piperacillin Sod/Tazobactam (Sod 4.5 gm/ Sodium Chloride) 100 mls @ 100 mls/hr IV Q8HR [facility] Stop: 04/30/17 20:59 Last Admin: 03/02/17 14:03 Dose: 100 mls/hr Lactobacillus Rhamnosus (Culturelle) 1 each PO DAILY [facility] Stop: 05/01/17 15:59 Last Admin: 03/02/17 16:26 Dose: 1 each Miscellaneous (Vte Chemical Prophylaxis Screen/ Admission) 1 ea PRN PRN PRN Reason: PROTOCOL Stop: 05/01/17 12:13 Miscellaneous (Probiotic Screen) 1 ea PRN PRN PRN Reason: PROTOCOL Stop: 05/01/17 14:39 Rivaroxaban (Xarelto) 20 mg PO QPM [facility] Stop: 04/30/17 16:59 Last Admin: 03/02/17 16:24 Dose: 20 mg Senna (Senna) 8.6 mg PO BID [facility] Stop: 04/30/17 16:59 Last Admin: 03/02/17 16:24 Dose: 8.6 mg General: alert HEENT: NC/AT, PERRLA Neck: Supple Lungs: CTAB Abdomen: soft, non-tender, other (left hand abscess) Neurological: alert - Procedures Procedures: Procedures Procedure Code Date DRAINAGE OF LEFT HAND, OPEN APPROACH [id number] 03/01/17 I&D ABSCESS SUBFASCIAL 03/01/17 Internal Medicine Assmt/Plan - Assessment Assessment: left hand infection s/p i+d left hand abscess hx parkinsons 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
[2017-03-03] MEDS: Lactobacillus Rhamnosus 10 Billion CFU Capsule PO SCH (08:38)
[2017-03-03] MEDS: Multivitamin w/ Minerals Tab PO SCH (08:38)
[2017-03-03] MEDS: D5-0.45NS 1,000 ML IV SCH (08:39)
--- NOTE | 2017-03-03 10:09 | General Progress Note ---
Subjective - Review of Systems Events since last encounter: no acute distress with Left hand abscess s/p i&d on antibiotics , ID f/up Objective - Results Result Diagrams: 03/01/17 12:58 03/01/17 12:58 Recent Labs: Laboratory Last Values WBC 4.3 Th/cmm (4.8-10.8) L 03/01/17 12:58 RBC 4.40 Mil/cmm (4.30-5.70) 03/01/17 12:58 Hgb 13.4 gm/dL (12-16) 03/01/17 12:58 Hct 40.2 % (41.0-60) L 03/01/17 12:58 MCV 91.3 fl (80-99) 03/01/17 12:58 MCH 30.5 pg (26.0-30.0) H 03/01/17 12:58 MCHC Differential 33.4 pg (28.0-36.0) 03/01/17 12:58 RDW 12.5 % (11.5-20.0) 03/01/17 12:58 Plt Count 266 Th/cmm (150-400) 03/01/17 12:58 MPV 6.7 fl 03/01/17 12:58 Neutrophils % 34.6 % (40.0-80.0) L 03/01/17 12:58 Lymphocytes % 52.1 % (20.0-50.0) H 03/01/17 12:58 Monocytes % 8.9 % (2.0-10.0) 03/01/17 12:58 Eosinophils % 3.9 % (0.0-5.0) 03/01/17 12:58 Basophils % 0.5 % (0.0-2.0) 03/01/17 12:58 PT 11.0 SECONDS (9.5-11.5) 03/01/17 12:58 INR 1.06 (0.5-1.4) 03/01/17 12:58 PTT (Actin FS) 33.2 SECONDS (26.0-38.0) 03/01/17 12:58 Sodium 135 mEq/L (136-145) L 03/01/17 12:58 Potassium 4.0 mEq/L (3.5-5.1) 03/01/17 12:58 Chloride 104 mEq/L (98-107) 03/01/17 12:58 Carbon Dioxide 28.3 mEq/L (21.0-31.0) 03/01/17 12:58 Anion Gap 6.7 (7.0-16.0) L 03/01/17 12:58 BUN 16 mg/dL (7-25) 03/01/17 12:58 Creatinine 0.6 mg/dL (0.7-1.3) L 03/01/17 12:58 Est GFR ( Amer) > 60.0 ml/min (>90) 03/01/17 12:58 Est GFR (Non-Af Amer) > 60.0 ml/min 03/01/17 12:58 BUN/Creatinine Ratio 26.7 03/01/17 12:58 Glucose 90 mg/dL (70-105) 03/01/17 12:58 POC Glucose 74 MG/DL (70 - 105) 03/01/17 17:02 Calcium 9.1 mg/dL (8.6-10.3) 03/01/17 12:58 Total Bilirubin 0.3 mg/dL (0.3-1.0) 03/01/17 12:58 AST 17 U/L (13-39) 03/01/17 12:58 ALT 15 U/L (7-52) 03/01/17 12:58 Alkaline Phosphatase 63 U/L (34-104) 03/01/17 12:58 Total Protein 7.3 gm/dL (6.0-8.3) 03/01/17 12:58 Albumin 3.5 gm/dL (4.2-5.5) L 03/01/17 12:58 Globulin 3.8 gm/dL 03/01/17 12:58 Albumin/Globulin Ratio 0.9 (1.0-1.8) L 03/01/17 12:58 - Physical Exam Vitals and I&O: Vital Signs Temp 99.1 F 03/03/17 09:00 Pulse 83 03/03/17 09:00 Resp 18 03/03/17 09:00 BP 119/59 03/03/17 09:00 Pulse Ox 97 03/03/17 09:00 Intake & Output 03/02/17 03/03/17 03/03/17 18:59 06:59 18:59 Intake Total 1100.00 100 Balance 1100.00 100 Weight (lbs) 73.142 kg 73.164 kg Intake: Intake, IV Amount 1100.00 100 D5-0.45NS 1,000 ml @ 75 1000.00 mls/hr IV .[id number] [facility] Rx #:[id number] Piperacillin Sodium/ 100 100 Tazobact 4.5 gm In Sodium Chloride 0.9% 100 ml @ 100 mls/hr IV Q8HR [facility] Rx #:[id number] Other: # Voids 2 # Bowel Movements 0 0 Active Medications: Current Medications Heparin Sodium (Porcine) (Heparin) 5,000 units SUBQ Q12HR [facility] Stop: 05/02/17 20:59 Hydromorphone HCl (Dilaudid) 2 mg IVP Q4H PRN PRN Reason: Pain (Severe) Stop: 05/01/17 10:39 Last Admin: 03/02/17 10:57 Dose: 2 mg Dextrose/Sodium Chloride (D5-0.45ns) 1,000 mls @ 75 mls/hr IV .[id number] [facility] Stop: 04/30/17 16:09 Last Admin: 03/03/17 08:39 Dose: 75 mls/hr Vancomycin HCl 1 gm/ Sodium (Chloride) 250 mls @ 165 mls/hr IV Q24H [facility] Stop: 04/30/17 16:09 Last Admin: 03/02/17 16:26 Dose: 165 mls/hr Piperacillin Sod/Tazobactam (Sod 4.5 gm/ Sodium Chloride) 100 mls @ 100 mls/hr IV Q8HR [facility] Stop: 04/30/17 20:59 Last Admin: 03/03/17 06:28 Dose: 100 mls/hr Lactobacillus Rhamnosus (Culturelle) 1 each PO DAILY [facility] Stop: 05/01/17 15:59 Last Admin: 03/03/17 08:38 Dose: 1 each Miscellaneous (Vte Chemical Prophylaxis Screen/ Admission) 1 ea PRN PRN PRN Reason: PROTOCOL Stop: 05/01/17 12:13 Miscellaneous (Probiotic Screen) 1 ea PRN PRN PRN Reason: PROTOCOL Stop: 05/01/17 14:39 Rivaroxaban (Xarelto) 20 mg PO QPM [facility] Stop: 04/30/17 16:59 Last Admin: 03/02/17 16:24 Dose: 20 mg Senna (Senna) 8.6 mg PO BID [facility] Stop: 04/30/17 16:59 Last Admin: 03/03/17 08:38 Dose: 8.6 mg General: No acute distress Cardiovascular: Regular rate, Normal S1 Lungs: Clear to auscultation Abdomen: Bowel sounds - Procedures Procedures: Procedures Procedure Code Date DRAINAGE OF LEFT HAND, OPEN APPROACH [id number] 03/01/17 I&D ABSCESS SUBFASCIAL 03/01/17 Assessment/Plan - Problem List Patient Problems: All Active Problems FAILURE TO THRIVE WITH POOR ORAL INTAKE (Acute) Fever (Acute) R50.9 Weakness (Acute) - Plan Plan: as per order sheet
--- NOTE | 2017-03-03 10:40 | General Progress Note ---
Subjective - Review of Systems Service Date: 03/03/17 Events since last encounter: abscess of palm is small ok to have oral antibiotics for DC nails were trimmed, this needs to be done on a routine basis Objective - Results Result Diagrams: 03/01/17 12:58 03/01/17 12:58 Recent Labs: Laboratory Last Values WBC 4.3 Th/cmm (4.8-10.8) L 03/01/17 12:58 RBC 4.40 Mil/cmm (4.30-5.70) 03/01/17 12:58 Hgb 13.4 gm/dL (12-16) 03/01/17 12:58 Hct 40.2 % (41.0-60) L 03/01/17 12:58 MCV 91.3 fl (80-99) 03/01/17 12:58 MCH 30.5 pg (26.0-30.0) H 03/01/17 12:58 MCHC Differential 33.4 pg (28.0-36.0) 03/01/17 12:58 RDW 12.5 % (11.5-20.0) 03/01/17 12:58 Plt Count 266 Th/cmm (150-400) 03/01/17 12:58 MPV 6.7 fl 03/01/17 12:58 Neutrophils % 34.6 % (40.0-80.0) L 03/01/17 12:58 Lymphocytes % 52.1 % (20.0-50.0) H 03/01/17 12:58 Monocytes % 8.9 % (2.0-10.0) 03/01/17 12:58 Eosinophils % 3.9 % (0.0-5.0) 03/01/17 12:58 Basophils % 0.5 % (0.0-2.0) 03/01/17 12:58 PT 11.0 SECONDS (9.5-11.5) 03/01/17 12:58 INR 1.06 (0.5-1.4) 03/01/17 12:58 PTT (Actin FS) 33.2 SECONDS (26.0-38.0) 03/01/17 12:58 Sodium 135 mEq/L (136-145) L 03/01/17 12:58 Potassium 4.0 mEq/L (3.5-5.1) 03/01/17 12:58 Chloride 104 mEq/L (98-107) 03/01/17 12:58 Carbon Dioxide 28.3 mEq/L (21.0-31.0) 03/01/17 12:58 Anion Gap 6.7 (7.0-16.0) L 03/01/17 12:58 BUN 16 mg/dL (7-25) 03/01/17 12:58 Creatinine 0.6 mg/dL (0.7-1.3) L 03/01/17 12:58 Est GFR ( Amer) > 60.0 ml/min (>90) 03/01/17 12:58 Est GFR (Non-Af Amer) > 60.0 ml/min 03/01/17 12:58 BUN/Creatinine Ratio 26.7 03/01/17 12:58 Glucose 90 mg/dL (70-105) 03/01/17 12:58 POC Glucose 74 MG/DL (70 - 105) 03/01/17 17:02 Calcium 9.1 mg/dL (8.6-10.3) 03/01/17 12:58 Total Bilirubin 0.3 mg/dL (0.3-1.0) 03/01/17 12:58 AST 17 U/L (13-39) 03/01/17 12:58 ALT 15 U/L (7-52) 03/01/17 12:58 Alkaline Phosphatase 63 U/L (34-104) 03/01/17 12:58 Total Protein 7.3 gm/dL (6.0-8.3) 03/01/17 12:58 Albumin 3.5 gm/dL (4.2-5.5) L 03/01/17 12:58 Globulin 3.8 gm/dL 03/01/17 12:58 Albumin/Globulin Ratio 0.9 (1.0-1.8) L 03/01/17 12:58 - Physical Exam Vitals and I&O: Vital Signs Temp 99.1 F 03/03/17 09:00 Pulse 83 03/03/17 09:00 Resp 18 03/03/17 09:00 BP 119/59 03/03/17 09:00 Pulse Ox 97 03/03/17 09:00 Intake & Output 03/02/17 03/03/17 03/03/17 18:59 06:59 18:59 Intake Total 1100.00 100 Balance 1100.00 100 Weight (lbs) 73.142 kg 73.164 kg Intake: Intake, IV Amount 1100.00 100 D5-0.45NS 1,000 ml @ 75 1000.00 mls/hr IV .[id number] [facility] Rx #:[id number] Piperacillin Sodium/ 100 100 Tazobact 4.5 gm In Sodium Chloride 0.9% 100 ml @ 100 mls/hr IV Q8HR [facility] Rx #:[id number] Other: # Voids 2 # Bowel Movements 0 0 Active Medications: Current Medications Heparin Sodium (Porcine) (Heparin) 5,000 units SUBQ Q12HR [facility] Stop: 05/02/17 20:59 Hydromorphone HCl (Dilaudid) 2 mg IVP Q4H PRN PRN Reason: Pain (Severe) Stop: 05/01/17 10:39 Last Admin: 03/02/17 10:57 Dose: 2 mg Dextrose/Sodium Chloride (D5-0.45ns) 1,000 mls @ 75 mls/hr IV .[id number] [facility] Stop: 04/30/17 16:09 Last Admin: 03/03/17 08:39 Dose: 75 mls/hr Vancomycin HCl 1 gm/ Sodium (Chloride) 250 mls @ 165 mls/hr IV Q24H [facility] Stop: 04/30/17 16:09 Last Admin: 03/02/17 16:26 Dose: 165 mls/hr Piperacillin Sod/Tazobactam (Sod 4.5 gm/ Sodium Chloride) 100 mls @ 100 mls/hr IV Q8HR [facility] Stop: 04/30/17 20:59 Last Admin: 03/03/17 06:28 Dose: 100 mls/hr Lactobacillus Rhamnosus (Culturelle) 1 each PO DAILY [facility] Stop: 05/01/17 15:59 Last Admin: 03/03/17 08:38 Dose: 1 each Miscellaneous (Vte Chemical Prophylaxis Screen/ Admission) 1 ea MC PRN PRN PRN Reason: PROTOCOL Stop: 05/01/17 12:13 Miscellaneous (Probiotic Screen) 1 ea MC PRN PRN PRN Reason: PROTOCOL Stop: 05/01/17 14:39 Rivaroxaban (Xarelto) 20 mg PO QPM [facility] Stop: 04/30/17 16:59 Last Admin: 03/02/17 16:24 Dose: 20 mg Senna (Senna) 8.6 mg PO BID [facility] Stop: 04/30/17 16:59 Last Admin: 03/03/17 08:38 Dose: 8.6 mg General: No acute distress Cardiovascular: Regular rate, Normal S1 Lungs: Clear to auscultation Abdomen: Bowel sounds - Procedures Procedures: Procedures Procedure Code Date DRAINAGE OF LEFT HAND, OPEN APPROACH [id number] 03/01/17 I&D ABSCESS SUBFASCIAL 03/01/17 Assessment/Plan - Problem List Patient Problems: All Active Problems FAILURE TO THRIVE WITH POOR ORAL INTAKE (Acute) Fever (Acute) R50.9 Weakness (Acute)
[2017-03-03] MEDS: Triple Antibiotic 0.94 gm Pkt TP SCH (15:49)
--- NOTE | 2017-03-03 22:49 | Infectious Disease Prog Note ---
Infectious Disease Subjective - Review of Systems Service Date: 03/03/17 Subjective: There is no new change, there is no fever. Infectious Disease Objective - Results Result Diagrams: 03/01/17 12:58 03/01/17 12:58 Recent Labs: Laboratory Last Values WBC 4.3 Th/cmm (4.8-10.8) L 03/01/17 12:58 RBC 4.40 Mil/cmm (4.30-5.70) 03/01/17 12:58 Hgb 13.4 gm/dL (12-16) 03/01/17 12:58 Hct 40.2 % (41.0-60) L 03/01/17 12:58 MCV 91.3 fl (80-99) 03/01/17 12:58 MCH 30.5 pg (26.0-30.0) H 03/01/17 12:58 MCHC Differential 33.4 pg (28.0-36.0) 03/01/17 12:58 RDW 12.5 % (11.5-20.0) 03/01/17 12:58 Plt Count 266 Th/cmm (150-400) 03/01/17 12:58 MPV 6.7 fl 03/01/17 12:58 Neutrophils % 34.6 % (40.0-80.0) L 03/01/17 12:58 Lymphocytes % 52.1 % (20.0-50.0) H 03/01/17 12:58 Monocytes % 8.9 % (2.0-10.0) 03/01/17 12:58 Eosinophils % 3.9 % (0.0-5.0) 03/01/17 12:58 Basophils % 0.5 % (0.0-2.0) 03/01/17 12:58 PT 11.0 SECONDS (9.5-11.5) 03/01/17 12:58 INR 1.06 (0.5-1.4) 03/01/17 12:58 PTT (Actin FS) 33.2 SECONDS (26.0-38.0) 03/01/17 12:58 Sodium 135 mEq/L (136-145) L 03/01/17 12:58 Potassium 4.0 mEq/L (3.5-5.1) 03/01/17 12:58 Chloride 104 mEq/L (98-107) 03/01/17 12:58 Carbon Dioxide 28.3 mEq/L (21.0-31.0) 03/01/17 12:58 Anion Gap 6.7 (7.0-16.0) L 03/01/17 12:58 BUN 16 mg/dL (7-25) 03/01/17 12:58 Creatinine 0.6 mg/dL (0.7-1.3) L 03/01/17 12:58 Est GFR ( Amer) > 60.0 ml/min (>90) 03/01/17 12:58 Est GFR (Non-Af Amer) > 60.0 ml/min 03/01/17 12:58 BUN/Creatinine Ratio 26.7 03/01/17 12:58 Glucose 90 mg/dL (70-105) 03/01/17 12:58 POC Glucose 74 MG/DL (70 - 105) 03/01/17 17:02 Calcium 9.1 mg/dL (8.6-10.3) 03/01/17 12:58 Total Bilirubin 0.3 mg/dL (0.3-1.0) 03/01/17 12:58 AST 17 U/L (13-39) 03/01/17 12:58 ALT 15 U/L (7-52) 03/01/17 12:58 Alkaline Phosphatase 63 U/L (34-104) 03/01/17 12:58 Total Protein 7.3 gm/dL (6.0-8.3) 03/01/17 12:58 Albumin 3.5 gm/dL (4.2-5.5) L 03/01/17 12:58 Globulin 3.8 gm/dL 03/01/17 12:58 Albumin/Globulin Ratio 0.9 (1.0-1.8) L 03/01/17 12:58 - Physical Exam Vitals and I&O: Vital Signs Temp 99.4 F 03/03/17 20:00 Pulse 76 03/03/17 20:00 Resp 18 03/03/17 20:00 BP 116/74 03/03/17 20:00 Pulse Ox 98 03/03/17 20:00 Intake & Output 03/03/17 03/03/17 03/04/17 06:59 18:59 06:59 Intake Total 100 250 Balance 100 250 Weight (lbs) 73.142 kg 73.028 kg Intake: Intake, IV Amount 100 200 Piperacillin Sodium/ 100 200 Tazobact 4.5 gm In Sodium Chloride 0.9% 100 ml @ 100 mls/hr IV Q8HR [facility] Rx #:[id number] Oral 50 Other: # Voids 2 3 # Bowel Movements 0 0 Active Medications: Current Medications Heparin Sodium (Porcine) (Heparin) 5,000 units SUBQ Q12HR [facility] Stop: 05/02/17 20:59 Last Admin: 03/03/17 22:24 Dose: 5,000 units Hydromorphone HCl (Dilaudid) 2 mg IVP Q4H PRN PRN Reason: Pain (Severe) Stop: 05/01/17 10:39 Last Admin: 03/02/17 10:57 Dose: 2 mg Dextrose/Sodium Chloride (D5-0.45ns) 1,000 mls @ 75 mls/hr IV .[id number] [facility] Stop: 04/30/17 16:09 Last Admin: 03/03/17 08:39 Dose: 75 mls/hr Vancomycin HCl 1 gm/ Sodium (Chloride) 250 mls @ 165 mls/hr IV Q24H [facility] Stop: 04/30/17 16:09 Last Admin: 03/03/17 15:50 Dose: 165 mls/hr Piperacillin Sod/Tazobactam (Sod 4.5 gm/ Sodium Chloride) 100 mls @ 100 mls/hr IV Q8HR [facility] Stop: 04/30/17 20:59 Last Admin: 03/03/17 22:18 Dose: 100 mls/hr Lactobacillus Rhamnosus (Culturelle) 1 each PO DAILY [facility] Stop: 05/01/17 15:59 Last Admin: 03/03/17 08:38 Dose: 1 each Miscellaneous (Vte Chemical Prophylaxis Screen/ Admission) 1 ea [facility] PRN PRN PRN Reason: PROTOCOL Stop: 05/01/17 12:13 Miscellaneous (Probiotic Screen) 1 ea [facility] PRN PRN PRN Reason: PROTOCOL Stop: 05/01/17 14:39 Neomycin/Polymyxin/Bacitracin (Triple Antibiotic Pkt) 1 pkt TP DAILY [facility] Stop: 05/02/17 11:29 Last Admin: 03/03/17 15:49 Dose: 1 pkt Rivaroxaban (Xarelto) 20 mg PO QPM [facility] Stop: 04/30/17 16:59 Last Admin: 03/03/17 17:06 Dose: 20 mg Senna (Senna) 8.6 mg PO BID [facility] Stop: 04/30/17 16:59 Last Admin: 03/03/17 17:06 Dose: 8.6 mg General: no acute distress, well developed, well nourished HEENT: atraumatic, normocephalic, PERRLA, EOMI Neck: supple, no thyromegaly Cardiovascular: S1S2, regular Lungs: clear to auscultation bilaterally, clear to percussion Abdomen: soft, no tender, no distended Extremities: other (Left hand dressing.), no cyanosis, no clubbing, no edema Neurological: awake, alert, oriented Skin: intact - Procedures Procedures: Procedures Procedure Code Date DRAINAGE OF LEFT HAND, OPEN APPROACH [id number] 03/01/17 I&D ABSCESS SUBFASCIAL 03/01/17 Infectious Disease Assmt/Plan - Problem List Patient Problems: All Active Problems FAILURE TO THRIVE WITH POOR ORAL INTAKE (Acute) Fever (Acute) R50.9 Weakness (Acute) - Assessment Assessment: 1. Left hand cellulitis and abscess. 2. S/p I and D. 3. CVA. 4. COPD. - Plan Plan: Contiue vanco IV and Zosyn. Woun care.
[2017-03-04] MEDS: D5-0.45NS 1,000 ML IV SCH (05:08)
[2017-03-04] MEDS: Lactobacillus Rhamnosus 10 Billion CFU Capsule PO SCH (08:38)
[2017-03-04] MEDS: Multivitamin w/ Minerals Tab PO SCH (08:38)
[2017-03-04] MEDS: Triple Antibiotic 0.94 gm Pkt TP SCH (08:39)
--- NOTE | 2017-03-04 09:22 | General Progress Note ---
Subjective - Review of Systems Events since last encounter: no new changes Objective - Results Result Diagrams: 03/01/17 12:58 03/01/17 12:58 Recent Labs: Laboratory Last Values WBC 4.3 Th/cmm (4.8-10.8) L 03/01/17 12:58 RBC 4.40 Mil/cmm (4.30-5.70) 03/01/17 12:58 Hgb 13.4 gm/dL (12-16) 03/01/17 12:58 Hct 40.2 % (41.0-60) L 03/01/17 12:58 MCV 91.3 fl (80-99) 03/01/17 12:58 MCH 30.5 pg (26.0-30.0) H 03/01/17 12:58 MCHC Differential 33.4 pg (28.0-36.0) 03/01/17 12:58 RDW 12.5 % (11.5-20.0) 03/01/17 12:58 Plt Count 266 Th/cmm (150-400) 03/01/17 12:58 MPV 6.7 fl 03/01/17 12:58 Neutrophils % 34.6 % (40.0-80.0) L 03/01/17 12:58 Lymphocytes % 52.1 % (20.0-50.0) H 03/01/17 12:58 Monocytes % 8.9 % (2.0-10.0) 03/01/17 12:58 Eosinophils % 3.9 % (0.0-5.0) 03/01/17 12:58 Basophils % 0.5 % (0.0-2.0) 03/01/17 12:58 PT 11.0 SECONDS (9.5-11.5) 03/01/17 12:58 INR 1.06 (0.5-1.4) 03/01/17 12:58 PTT (Actin FS) 33.2 SECONDS (26.0-38.0) 03/01/17 12:58 Sodium 135 mEq/L (136-145) L 03/01/17 12:58 Potassium 4.0 mEq/L (3.5-5.1) 03/01/17 12:58 Chloride 104 mEq/L (98-107) 03/01/17 12:58 Carbon Dioxide 28.3 mEq/L (21.0-31.0) 03/01/17 12:58 Anion Gap 6.7 (7.0-16.0) L 03/01/17 12:58 BUN 16 mg/dL (7-25) 03/01/17 12:58 Creatinine 0.6 mg/dL (0.7-1.3) L 03/01/17 12:58 Est GFR ( Amer) > 60.0 ml/min (>90) 03/01/17 12:58 Est GFR (Non-Af Amer) > 60.0 ml/min 03/01/17 12:58 BUN/Creatinine Ratio 26.7 03/01/17 12:58 Glucose 90 mg/dL (70-105) 03/01/17 12:58 POC Glucose 74 MG/DL (70 - 105) 03/01/17 17:02 Calcium 9.1 mg/dL (8.6-10.3) 03/01/17 12:58 Total Bilirubin 0.3 mg/dL (0.3-1.0) 03/01/17 12:58 AST 17 U/L (13-39) 03/01/17 12:58 ALT 15 U/L (7-52) 03/01/17 12:58 Alkaline Phosphatase 63 U/L (34-104) 03/01/17 12:58 Total Protein 7.3 gm/dL (6.0-8.3) 03/01/17 12:58 Albumin 3.5 gm/dL (4.2-5.5) L 03/01/17 12:58 Globulin 3.8 gm/dL 03/01/17 12:58 Albumin/Globulin Ratio 0.9 (1.0-1.8) L 03/01/17 12:58 - Physical Exam Vitals and I&O: Vital Signs Temp 98.8 F 03/04/17 04:00 Pulse 80 03/04/17 04:00 Resp 18 03/04/17 04:00 BP 126/83 03/04/17 04:00 Pulse Ox 97 03/04/17 04:00 Intake & Output 03/03/17 03/04/17 03/04/17 18:59 06:59 18:59 Intake Total 250 1285 Balance 250 1285 Weight (lbs) 73.028 kg 73.482 kg Intake: Intake, IV Amount 200 1285 D5-0.45NS 1,000 ml @ 75 1085 mls/hr IV .[id number] [facility] Rx #:[id number] Piperacillin Sodium/ 200 200 Tazobact 4.5 gm In Sodium Chloride 0.9% 100 ml @ 100 mls/hr IV Q8HR [facility] Rx #:[id number] Oral 50 Other: # Voids 3 # Bowel Movements 0 Active Medications: Current Medications Heparin Sodium (Porcine) (Heparin) 5,000 units SUBQ Q12HR [facility] Stop: 05/02/17 20:59 Last Admin: 03/04/17 08:39 Dose: 5,000 units Hydromorphone HCl (Dilaudid) 2 mg IVP Q4H PRN PRN Reason: Pain (Severe) Stop: 05/01/17 10:39 Last Admin: 03/02/17 10:57 Dose: 2 mg Dextrose/Sodium Chloride (D5-0.45ns) 1,000 mls @ 75 mls/hr IV .[id number] [facility] Stop: 04/30/17 16:09 Last Infusion: 03/04/17 06:16 Dose: 75 mls/hr Vancomycin HCl 1 gm/ Sodium (Chloride) 250 mls @ 165 mls/hr IV Q24H [facility] Stop: 04/30/17 16:09 Last Admin: 03/03/17 15:50 Dose: 165 mls/hr Piperacillin Sod/Tazobactam (Sod 4.5 gm/ Sodium Chloride) 100 mls @ 100 mls/hr IV Q8HR [facility] Stop: 04/30/17 20:59 Last Infusion: 03/04/17 06:16 Dose: Infused Lactobacillus Rhamnosus (Culturelle) 1 each PO DAILY [facility] Stop: 05/01/17 15:59 Last Admin: 03/04/17 08:38 Dose: 1 each Miscellaneous (Vte Chemical Prophylaxis Screen/ Admission) 1 ea PRN PRN PRN Reason: PROTOCOL Stop: 05/01/17 12:13 Miscellaneous (Probiotic Screen) 1 ea PRN PRN PRN Reason: PROTOCOL Stop: 05/01/17 14:39 Neomycin/Polymyxin/Bacitracin (Triple Antibiotic Pkt) 1 pkt TP DAILY [facility] Stop: 05/02/17 11:29 Last Admin: 03/04/17 08:39 Dose: 1 pkt Rivaroxaban (Xarelto) 20 mg PO QPM [facility] Stop: 04/30/17 16:59 Last Admin: 03/03/17 17:06 Dose: 20 mg Senna (Senna) 8.6 mg PO BID [facility] Stop: 04/30/17 16:59 Last Admin: 03/04/17 08:39 Dose: 8.6 mg General: No acute distress Cardiovascular: Regular rate, Normal S1 Lungs: Clear to auscultation Abdomen: Bowel sounds - Procedures Procedures: Procedures Procedure Code Date DRAINAGE OF LEFT HAND, OPEN APPROACH [id number] 03/01/17 I&D ABSCESS SUBFASCIAL 03/01/17 Assessment/Plan - Problem List Patient Problems: All Active Problems FAILURE TO THRIVE WITH POOR ORAL INTAKE (Acute) Fever (Acute) R50.9 Weakness (Acute) - Plan Plan: as per order sheet
--- NOTE | 2017-03-04 11:06 | Infectious Disease Prog Note ---
Infectious Disease Subjective - Review of Systems Service Date: 03/04/17 Subjective: There is no new change, there is no fever. Infectious Disease Objective - Results Result Diagrams: 03/01/17 12:58 03/01/17 12:58 Recent Labs: Laboratory Last Values WBC 4.3 Th/cmm (4.8-10.8) L 03/01/17 12:58 RBC 4.40 Mil/cmm (4.30-5.70) 03/01/17 12:58 Hgb 13.4 gm/dL (12-16) 03/01/17 12:58 Hct 40.2 % (41.0-60) L 03/01/17 12:58 MCV 91.3 fl (80-99) 03/01/17 12:58 MCH 30.5 pg (26.0-30.0) H 03/01/17 12:58 MCHC Differential 33.4 pg (28.0-36.0) 03/01/17 12:58 RDW 12.5 % (11.5-20.0) 03/01/17 12:58 Plt Count 266 Th/cmm (150-400) 03/01/17 12:58 MPV 6.7 fl 03/01/17 12:58 Neutrophils % 34.6 % (40.0-80.0) L 03/01/17 12:58 Lymphocytes % 52.1 % (20.0-50.0) H 03/01/17 12:58 Monocytes % 8.9 % (2.0-10.0) 03/01/17 12:58 Eosinophils % 3.9 % (0.0-5.0) 03/01/17 12:58 Basophils % 0.5 % (0.0-2.0) 03/01/17 12:58 PT 11.0 SECONDS (9.5-11.5) 03/01/17 12:58 INR 1.06 (0.5-1.4) 03/01/17 12:58 PTT (Actin FS) 33.2 SECONDS (26.0-38.0) 03/01/17 12:58 Sodium 135 mEq/L (136-145) L 03/01/17 12:58 Potassium 4.0 mEq/L (3.5-5.1) 03/01/17 12:58 Chloride 104 mEq/L (98-107) 03/01/17 12:58 Carbon Dioxide 28.3 mEq/L (21.0-31.0) 03/01/17 12:58 Anion Gap 6.7 (7.0-16.0) L 03/01/17 12:58 BUN 16 mg/dL (7-25) 03/01/17 12:58 Creatinine 0.6 mg/dL (0.7-1.3) L 03/01/17 12:58 Est GFR ( Amer) > 60.0 ml/min (>90) 03/01/17 12:58 Est GFR (Non-Af Amer) > 60.0 ml/min 03/01/17 12:58 BUN/Creatinine Ratio 26.7 03/01/17 12:58 Glucose 90 mg/dL (70-105) 03/01/17 12:58 POC Glucose 74 MG/DL (70 - 105) 03/01/17 17:02 Calcium 9.1 mg/dL (8.6-10.3) 03/01/17 12:58 Total Bilirubin 0.3 mg/dL (0.3-1.0) 03/01/17 12:58 AST 17 U/L (13-39) 03/01/17 12:58 ALT 15 U/L (7-52) 03/01/17 12:58 Alkaline Phosphatase 63 U/L (34-104) 03/01/17 12:58 Total Protein 7.3 gm/dL (6.0-8.3) 03/01/17 12:58 Albumin 3.5 gm/dL (4.2-5.5) L 03/01/17 12:58 Globulin 3.8 gm/dL 03/01/17 12:58 Albumin/Globulin Ratio 0.9 (1.0-1.8) L 03/01/17 12:58 - Physical Exam Vitals and I&O: Vital Signs Temp 98.8 F 03/04/17 04:00 Pulse 80 03/04/17 04:00 Resp 18 03/04/17 04:00 BP 126/83 03/04/17 04:00 Pulse Ox 97 03/04/17 04:00 Intake & Output 03/03/17 03/04/17 03/04/17 18:59 06:59 18:59 Intake Total 250 1285 Balance 250 1285 Weight (lbs) 73.028 kg 73.482 kg Intake: Intake, IV Amount 200 1285 D5-0.45NS 1,000 ml @ 75 1085 mls/hr IV .[id number] [facility] Rx #:[id number] Piperacillin Sodium/ 200 200 Tazobact 4.5 gm In Sodium Chloride 0.9% 100 ml @ 100 mls/hr IV Q8HR [facility] Rx #:[id number] Oral 50 Other: # Voids 3 # Bowel Movements 0 Active Medications: Current Medications Heparin Sodium (Porcine) (Heparin) 5,000 units SUBQ Q12HR [facility] Stop: 05/02/17 20:59 Last Admin: 03/04/17 08:39 Dose: 5,000 units Hydromorphone HCl (Dilaudid) 2 mg IVP Q4H PRN PRN Reason: Pain (Severe) Stop: 05/01/17 10:39 Last Admin: 03/02/17 10:57 Dose: 2 mg Dextrose/Sodium Chloride (D5-0.45ns) 1,000 mls @ 75 mls/hr IV .[id number] [facility] Stop: 04/30/17 16:09 Last Infusion: 03/04/17 06:16 Dose: 75 mls/hr Vancomycin HCl 1 gm/ Sodium (Chloride) 250 mls @ 165 mls/hr IV Q24H [facility] Stop: 04/30/17 16:09 Last Admin: 03/03/17 15:50 Dose: 165 mls/hr Piperacillin Sod/Tazobactam (Sod 4.5 gm/ Sodium Chloride) 100 mls @ 100 mls/hr IV Q8HR [facility] Stop: 04/30/17 20:59 Last Infusion: 03/04/17 06:16 Dose: Infused Lactobacillus Rhamnosus (Culturelle) 1 each PO DAILY [facility] Stop: 05/01/17 15:59 Last Admin: 03/04/17 08:38 Dose: 1 each Miscellaneous (Vte Chemical Prophylaxis Screen/ Admission) 1 ea PRN PRN PRN Reason: PROTOCOL Stop: 05/01/17 12:13 Miscellaneous (Probiotic Screen) 1 ea PRN PRN PRN Reason: PROTOCOL Stop: 05/01/17 14:39 Neomycin/Polymyxin/Bacitracin (Triple Antibiotic Pkt) 1 pkt TP DAILY [facility] Stop: 05/02/17 11:29 Last Admin: 03/04/17 08:39 Dose: 1 pkt Rivaroxaban (Xarelto) 20 mg PO QPM [facility] Stop: 04/30/17 16:59 Last Admin: 03/03/17 17:06 Dose: 20 mg Senna (Senna) 8.6 mg PO BID [facility] Stop: 04/30/17 16:59 Last Admin: 03/04/17 08:39 Dose: 8.6 mg General: no acute distress, well developed, well nourished HEENT: atraumatic, normocephalic Neck: supple, no thyromegaly Cardiovascular: S1S2, regular Lungs: clear to auscultation bilaterally, clear to percussion Abdomen: soft, other (g tube), no tender, no distended, no rebound Extremities: other (flexion contraxctures), no cyanosis, no clubbing, no edema Neurological: awake, alert Skin: intact - Procedures Procedures: Procedures Procedure Code Date DRAINAGE OF LEFT HAND, OPEN APPROACH [id number] 03/01/17 I&D ABSCESS SUBFASCIAL 03/01/17 Infectious Disease Assmt/Plan - Problem List Patient Problems: All Active Problems FAILURE TO THRIVE WITH POOR ORAL INTAKE (Acute) Fever (Acute) R50.9 Weakness (Acute) - Assessment Assessment: 1. Left hand cellulitis and abscess. 2. S/p I and D. 3. CVA. 4. COPD. - Plan Plan: dc vanco IV and Zosyn. start rocephin 2 G iv daily for 10 days. Wound care. DC to SNF.
[2017-03-04] MEDS ORDERED: cefTRIAXone 2 GM in Sodium Chloride 0.9% 100 ML IV SCH (12:00)
--- NOTE | 2017-03-05 22:41 | Discharge Summary ---
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 The patient is admitted and vascular surgeon saw the patient with the debridement and also ID doctor saw the patient. The patient was started on antibiotics. The patient was sent back to the [facility] on antibiotics and I will follow the patient there. MEDICATION: See reconciliation sheet. See the notes. ACTIVITY: As tolerated. JOB# [id number]
== END 2017-03-04 14:15 | disposition home or self-care (01) | DRG 720 ==
LOC: ER 12:16 → MSI 13:30 → TELE 03-03 20:07 → MSI 03-04 05:33
PROVIDERS: ADMIT Internal Medicine; ATTEND Internal Medicine
PROC: 0X9K0ZZ Drainage of Left Hand, Open Approach (ICD-10-PCS; principal; 2017-03-02)
DX: A41.9 Sepsis, unspecified organism (principal); G10 Huntington's disease; G20 Parkinson's disease; R53.2 Functional quadriplegia; G83.9 Paralytic syndrome, unspecified; L02.512 Cutaneous abscess of left hand; F02.80 Dementia in other diseases classified elsewhere, unspecified severity, without behavioral disturbance, psychotic disturbance, mood disturbance, and anxiety; J44.9 Chronic obstructive pulmonary disease, unspecified; M21.961 Unspecified acquired deformity of right lower leg; L03.114 Cellulitis of left upper limb; Z86.73 Personal history of transient ischemic attack (TIA), and cerebral infarction without residual deficits; Z86.718 Personal history of other venous thrombosis and embolism
CPT/HCPCS: 36415-UA; 71010-TC; 80053-TC; 82948-90; 85025-TC; 85610-TC; 87070-90; 87075-90; 87205-90; 93005; J0696; J1170; J1644; J1956; J2001; J2543; J2704; J3370; J7042; Z7610

== ENCOUNTER 2017-03-19 18:47 | Emergency (ER) | payer MEDICAID ==
--- NOTE | 2017-03-19 19:06 | ED Physician Chart ---
ED Chief Complaint/HPI - Patient Information Date Seen:: 03/19/17 Time Seen:: 18:50 Chief Complaint:: bleeding from ears History of Present Illness:: Debrox was placed in both ears this morning for ceruminosis. This evening bleeding from both ears was noted. Nurse here contacted the halfway facility and the person there said there was no trauma to the patient's ears like trying to remove wax manually. Allergies:: Allergies Allergy/AdvReac Type Severity Reaction Status Date / Time No Known Allergies Allergy Verified 03/01/17 12:25 Historian:: Medical Records Review:: Transfer documents Reviewed ED Review of Systems - Review of Systems General/Constitutional: No fever, No chills Skin: No skin lesions Head: No headache Eyes: Acuity change ENT: Other Neck: No neck pain (bleeding from ears) Cardio Vascular: No chest pain Pulmonary: No SOB GI: No nausea Musculoskeletal: No bone or joint pain Endocrine: No polyuria Psychiatric: Prior psych history, Depression Hematopoietic: No bruising Allergic/Immuno: No urticaria Neurological: No syncope ED Past Medical History - Past Medical History Past Medical History: Dementia, Other (psychosis; contractures; Parkinson's disease; [place]'s chorea dry eye syndrome;) Family History: Other (unavailable) Social History: Care Facility Surgical History: other (available) Psychiatricy History: Dementia Medication: Reviewed Family Medical History - Family Member Father History Unknown: Yes Ethnicity: Non- Living Status: Unknown ED Physical Exam - Physical Examination Other Gen/Cons comments:: Chronically ill-appearing; no verbal response; contracture of upper extremities Head: Atraumatic Eyes: Lids, conjuctiva normal Skin: Nl inspection ENMT: External ears, nose nl Other ENMT comments:: Serosanguineous fluid in both external auditory canals right more than left. Neck: No nuchal rigidity Respiratory: Nl effort/Exclusion Cardio Vascular: RRR GI: No tenderness/rebounding/guarding ED Labs/Radiology/EKG Results - Lab Results Results: Laboratory Results - last 24 hr 03/19/17 03/19/17 03/19/17 19:32 19:32 19:32 WBC 7.1 D RBC 4.62 Hgb 14.1 Hct 42.4 MCV 91.9 MCH 30.5 H MCHC Differential 33.2 RDW 12.6 Plt Count 247 MPV 7.3 Neutrophils % 53.0 Lymphocytes % 37.4 Monocytes % 7.3 Eosinophils % 1.6 Basophils % 0.7 PT 10.3 INR 0.99 PTT (Actin FS) 26.4 Sodium 131 L Potassium 4.1 Chloride 101 Carbon Dioxide 26.3 Anion Gap 7.8 BUN 16 Creatinine 0.7 Est GFR ( Amer) > 60.0 Est GFR (Non-Af Amer) > 60.0 BUN/Creatinine Ratio 22.9 Glucose 101 Calcium 9.4 ED Assessment - Assessment General Assessment: otitis externa is a most likely etiology for the serosanguineous fluid coming from the patient's ears especially since there is no apparent trauma to the ears ED Septic Shock - . Is Septic Shock (SBP<90, OR Lactate>4 mmol\L) present?: No ED Reassessment (Disposition) - Reassessment Reassessment:: At 2115 RN cleaned the patient's nurse and there was only very slight serosanguineous fluid coming out Reassessment Condition:: Unchanged - Diagnosis Diagnosis:: Otitis externa; Madeleine's disease; dementia - Aftercare/Follow up Instructions Aftercare/Follow-Up Instructions:: Refer to Discharge Instructions Medication Prescribed:: Cortisporin otic 3 drops both ears 4 times a day - Patient Disposition Discharge/Transfer:: [facility] - SNF Admitted to:: Med/Surg Spoke to:: Mallory Traore Condition at Disposition:: Stable, Unchanged
[2017-03-19 19:39] LABS: % BASOPHILS 0.7 % (0.0-2.0); % EOSINOPHILS 1.6 % (0.0-5.0); % LYMPHOCYTES 37.4 % (20.0-50.0); % MONOCYTES 7.3 % (2.0-10.0); HEMATOCRIT 42.4 % (41.0-60); HEMOGLOBIN 14.1 gm/dL (12-16); MEAN CELL VOLUME 91.9 fl (80-99); MEAN CORPUSCULAR HEMOGLOBIN 30.5 pg (26.0-30.0); MEAN CORPUSCULAR HGB CONC 33.2 pg (28.0-36.0); MEAN PLATELET VOLUME 7.3 fl; NEUTROPHILE ABSOLUTE 3.8 Th/cmm (1.8-8.0); PLATELET COUNT 247 Th/cmm (150-400); RED BLOOD COUNT 4.62 Mil/cmm (4.30-5.70); RED CELL DISTRIBUTION WIDTH 12.6 % (11.5-20.0)
[2017-03-19 19:41] LABS: WHITE BLOOD COUNT 7.1 Th/cmm (4.8-10.8)
[2017-03-19 19:54] LABS: ANION GAP 7.8 (7.0-16.0); BUN - UREA NITROGEN 16 mg/dL (7-25); BUN/CREATININE RATIO 22.9; CALCIUM SERUM 9.4 mg/dL (8.6-10.3); CARBON DIOXIDE 26.3 mEq/L (21.0-31.0); CHLORIDE 101 mEq/L (98-107); CREATININE - SERUM 0.7 mg/dL (0.7-1.3); GLUCOSE 101 mg/dL (70-105); POTASSIUM SERUM 4.1 mEq/L (3.5-5.1); SODIUM SERUM 131 mEq/L (136-145)
[2017-03-19 20:17] LABS: INR 0.99 (0.5-1.4); PROTHROMBIN TIME (TEST) 10.3 SECONDS (9.5-11.5)
--- NOTE | 2017-03-20 08:06 | Diagnostic Imaging Report ---
CHEST X-RAY: AP view INDICATION: CVA COMPARISON: Head CT on 03-17 FINDINGS: Patient hands obscures the right costophrenic angle. No focal consolidation or pleural effusions. No evidence of pneumothorax. Heart size is normal. The osseous structures are intact. Old left AC joint separation is noted. IMPRESSION: No focal consolidation identified.
== END 2017-03-19 23:44 ==
LOC: ER 18:47
DX: H60.93 Unspecified otitis externa, bilateral (principal); G10 Huntington's disease; F02.80 Dementia in other diseases classified elsewhere, unspecified severity, without behavioral disturbance, psychotic disturbance, mood disturbance, and anxiety
CPT/HCPCS: 36415-UA; 71010-TC; 80048-TC; 85025-TC; 85610-TC; 85730-TC

== ENCOUNTER 2018-07-08 17:24 | Emergency (ER) | payer BC, MEDICAID ==
--- NOTE | 2018-07-08 17:37 | ED Physician Chart ---
ED Chief Complaint/HPI - Patient Information Date Seen:: 07/08/18 Time Seen:: 17:30 Chief Complaint:: lesion right upper back History of Present Illness:: At the retirement facility a lesion on the right upper back was noted earlier today Allergies:: Allergies Allergy/AdvReac Type Severity Reaction Status Date / Time No Known Allergies Allergy Verified 03/01/17 12:25 Historian:: EMS Review:: Transfer documents Reviewed ED Review of Systems - Review of Systems General/Constitutional: No fever, No chills Skin: Skin lesions Head: No headache Eyes: No loss of vision ENT: No earache Neck: No neck pain, No swelling Cardio Vascular: No chest pain, No palpitations Pulmonary: No SOB GI: No nausea, No vomiting, No diarrhea G/U: No dysuria Musculoskeletal: No bone or joint pain, No back pain, No muscle pain Endocrine: No polyuria Psychiatric: Prior psych history Allergic/Immuno: No urticaria Neurological: No syncope ED Past Medical History - Past Medical History Past Medical History: Other (Parkinson's disease; multiple contractures; dementia) Family History: Other (unavailable) Social History: Care Facility Surgical History: other (unavailable) Psychiatricy History: Dementia Medication: Reviewed Family Medical History - Family Member Father History Unknown: Yes Ethnicity: Non- Living Status: Unknown ED Physical Exam - Physical Examination Other Gen/Cons comments:: Chronically ill-appearing; nonverbal Head: Atraumatic Eyes: Lids, conjuctiva normal Other Skin comments:: About one half centimeter stage II decubitus right superior back; bleeding slightly ENMT: External ears, nose nl Other Neck comments:: Next if Respiratory: No Wheeze/Rhonchi/Rales Other Respiratory comments:: Breath sounds harsh Cardio Vascular: RRR Other Cardio Vascular comments:: Heart sounds faint GI: No tenderness/rebounding/guarding : No CVA tenderness Other Extremities comments:: Multiple contractures Neuro/Psych: No focal deficits ED Labs/Radiology/EKG Results - Lab Results Comments:: Abnormal Lab Results 07/08/18 07/08/18 07/08/18 17:53 17:53 17:53 WBC 4.3 L RBC 4.55 Hgb 13.4 Hct 42.0 MCV 92.4 MCH 29.5 MCHC Differential 31.9 RDW 12.5 Plt Count 298 MPV 6.5 Neutrophils % 41.0 Lymphocytes % 44.9 Monocytes % 11.0 H Eosinophils % 1.8 Basophils % 1.3 Sodium 136 Potassium 4.1 Chloride 100 Carbon Dioxide 28.4 Anion Gap 11.7 BUN 12 Creatinine 0.6 L Est GFR ( Amer) > 60.0 Est GFR (Non-Af Amer) > 60.0 BUN/Creatinine Ratio 20.0 Glucose 103 Whole Bld Lactic Acid 1.45 Calcium 9.5 ED Septic Shock - . Is Septic Shock (SBP<90, OR Lactate>4 mmol\L) present?: No ED Reassessment (Disposition) - Reassessment Reassessment:: Patient's insurance did not authorize admission; they say they have a transmission specialist who will see the patient in his extended care facility. Dr. Reid first paged at 1945: No response by [id number]. Patient to be discharged to return to his extended care facility. Reassessment Condition:: Unchanged - Diagnosis Diagnosis:: 1 1/2 cm right superior back decubitus; dementia; Parkinson's disease - Aftercare/Follow up Instructions Aftercare/Follow-Up Instructions:: Refer to Discharge Instructions - Patient Disposition Discharge/Transfer:: [facility] - SNF Condition at Disposition:: Stable, Unchanged
[2018-07-08 18:00] LABS: % BASOPHILS 1.3 % (0.0-2.0); % EOSINOPHILS 1.8 % (0.0-5.0); % LYMPHOCYTES 44.9 % (20.0-50.0); BASOPHILE ABSOLUTE 0.1 Th/cumm (0-0.2); EOSINOPHILE ABSOLUTE 0.1 Th/cmm (0.1-0.4); HEMOGLOBIN 13.4 gm/dL (12-16); LYMPHOCYTE ABSOLUTE 1.8 Th/cmm (1.5-3.0); MEAN CELL VOLUME 92.4 fl (80-99); MEAN CORPUSCULAR HEMOGLOBIN 29.5 pg (26.0-30.0); MEAN CORPUSCULAR HGB CONC 31.9 pg (28.0-36.0); MEAN PLATELET VOLUME 6.5 fl; MONOCYTE ABSOLUTE 0.5 Th/cmm (0.3-1.0); NEUTROPHILE ABSOLUTE 1.8 Th/cmm (1.8-8.0); PLATELET COUNT 298 Th/cmm (150-400); RED BLOOD COUNT 4.55 Mil/cmm (4.30-5.70); RED CELL DISTRIBUTION WIDTH 12.5 % (11.5-20.0); WHITE BLOOD COUNT 4.3 Th/cmm (4.8-10.8)
[2018-07-08 18:15] LABS: ANION GAP 11.7 (7.0-16.0); BUN - UREA NITROGEN 12 mg/dL (7-25); CALCIUM SERUM 9.5 mg/dL (8.6-10.3); CARBON DIOXIDE 28.4 mEq/L (21.0-31.0); CHLORIDE 100 mEq/L (98-107); CREATININE - SERUM 0.6 mg/dL (0.7-1.3); GFR AFRICAN-AMERICAN > 60.0 ml/min (>90); GFR NON AFRICAN-AMERICAN > 60.0 ml/min; GLUCOSE 103 mg/dL (70-105); POTASSIUM SERUM 4.1 mEq/L (3.5-5.1); SODIUM SERUM 136 mEq/L (136-145)
== END 2018-07-08 21:50 ==
LOC: ER 17:24
DX: L89.119 Pressure ulcer of right upper back, unspecified stage (principal); G31.83 Neurocognitive disorder with Lewy bodies; F02.80 Dementia in other diseases classified elsewhere, unspecified severity, without behavioral disturbance, psychotic disturbance, mood disturbance, and anxiety
CPT/HCPCS: 36415-UA; 80048-TC; 83605; 85025-TC; 87070-90; Z7502